=== PATIENT | female | born 1955 | race Caucasian/White ===

== ENCOUNTER 2018-07-03 16:21 | Inpatient (IN) ==
[2018-07-03 17:27] LABS: Baso % (Auto) 0.4 % (0.0-2.0); Eos # (Auto) 0.2 th/mm3 (0.0-0.4); Eos % (Auto) 1.6 % (0.0-4.0); Hematocrit 40.4 % (35.0-46.0); Hemoglobin 13.6 gm/dL (11.6-15.3); Lymph # (Auto) 1.6 th/mm3 (1.0-4.8); Lymph % (Auto) 12.1 % (9.0-44.0); Mean Corpuscular HGB Conc 33.7 % (32.0-36.0); Mean Corpuscular Hemoglobin 29.1 pg (27.0-34.0); Mean Corpuscular Volume 86.3 fL (80.0-100.0); Mean Platelet Volume 8.5 fL (7.0-11.0); Mono # (Auto) 1.1 th/mm3 (0.0-0.9); Mono % (Auto) 8.2 % (0.0-8.0); Neut # (Auto) 10.2 th/mm3 (1.8-7.7); Neut % (Auto) 77.7 % (16.0-70.0); Platelet Count 302 th/mm3 (150-450); Red Blood Count 4.68 mil/mm3 (4.00-5.30); Red Cell Distribution Width 15.2 % (11.6-17.2); White Blood Count 13.1 th/mm3 (4.0-11.0)
--- NOTE | 2018-07-03 17:44 | ED ---
HPI General Chief complaint: Extremity Problem,Nontraumatic Stated complaint: Cellulitis both legs Time Seen by Provider: 07/03/18 16:34 History of Present Illness HPI narrative: This is a 62-year-old female who is deaf, history of obesity, hyperlipidemia, depression and venous insufficiency. She was sent here by Dr. Veloz for treatment and admission of cellulitis failed outpatient therapy. She has had lower extremity edema for several months. Over the past month she developed redness and pain in the left pretibial region. She was placed on a 10 -day course of amoxicillin in May. She followed up with Dr. Veloz today with a worsening of her symptoms and she was sent here for further evaluation. Discussed this with Dr. Veloz. She has had no fevers or chills. Symptoms are moderate, aggravated by palpation. Related Data Home Medications Medication Instructions Recorded Confirmed Advil 07/03/18 Lasix 07/03/18 amoxicillin 07/03/18 07/03/18 naproxen 500 mg PO TID 07/03/18 07/03/18 pravastatin 20 mg PO DAILY 07/03/18 07/03/18 Allergies Allergy/AdvReac Type Severity Reaction Status Date / Time No Known Allergies Allergy Uncoded 12/08/12 10:07 Review of Systems ROS: all other systems reviewed are negative [facility] Medical History Medical History Hyperlipidemia (Acute) Obesity (Acute) PVD (peripheral vascular disease) (Acute) Rotator cuff dysfunction (Acute) Social History Social History Substance History: No History of Abuse Second Hand Smoke Exposure: No Smoking Status: Never smoker How Often Do You Have a Drink Containing Alcohol: Never Recent Travel in [facility] within the Last 8 Weeks: No Recent Out of Country Travel within the Last 8 Weeks: No Immunization History Tetanus Immunization: Unsure Exam Narrative Exam Narrative: GENERAL: This is an obese female who is in no acute distress SKIN: Warm and dry. Examination of the left pretibial region reveals a large area of erythema, skin maceration and drainage. HEAD: Atraumatic. Normocephalic. EYES: Pupils equal and round. No scleral icterus. No injection or drainage. ENT: No nasal bleeding or discharge. Mucous membranes pink and moist. NECK: Trachea midline. No JVD. CARDIOVASCULAR: Regular rate and rhythm. No murmur appreciated. RESPIRATORY: No accessory muscle use. Clear to auscultation. Breath sounds equal bilaterally. GASTROINTESTINAL: Abdomen soft, non-tender, nondistended. Hepatic and splenic margins not palpable. MUSCULOSKELETAL: No obvious deformities. Skin as noted above. Pitting edema noted to the lower extremities bilaterally. NEUROLOGICAL: Awake and alert. No obvious cranial nerve deficits. Motor grossly within normal limits. Normal speech. Course Initial Documented Vital Signs Temperature 98.3 F 07/03/18 16:39 Pulse Rate 106 H 07/03/18 16:39 Blood Pressure 192/88 H 07/03/18 16:39 Pulse Oximetry 96 07/03/18 16:39 Last Documented Vital Signs Temperature 98.3 F 07/03/18 16:39 Pulse Rate 100 H 07/03/18 19:00 Respiratory Rate 20 07/03/18 19:00 Blood Pressure 190/77 H 07/03/18 19:00 Pulse Oximetry 95 07/03/18 19:00 Medical Decision Making MDM Narrative Medical decision making narrative: IV established, lab work, blood cultures left lower extremity ultrasound obtained. Lab work, ultrasound results reviewed. CBC reveals a WBC count of 13.1. She meets sirs criteria. Ultrasound is negative for DVT however was limited secondary to cellulitis and pain per radiologist. The patient was given vancomycin and Zosyn. Nystatin cream was also applied to the wound. At this point in time the plan is to admit her for further treatment. Medical Screen Exam Complete: Yes Emergency Medical Condition: Yes Differential Diagnosis Differential Diagnosis: Cellulitis, candidal infection, abscess, venous insufficiency, lymphedema Lab Data Result diagrams: 07/03/18 16:45 07/03/18 16:45 Lab Results 07/03/18 07/03/18 07/03/18 Range/Units 16:45 16:45 16:45 WBC 13.1 H (4.0-11.0) th/mm3 RBC 4.68 (4.00-5.30) mil/mm3 Hgb 13.6 (11.6-15.3) gm/dL Hct 40.4 (35.0-46.0) % MCV 86.3 (80.0-100.0) fL MCH 29.1 (27.0-34.0) pg MCHC 33.7 (32.0-36.0) % RDW 15.2 (11.6-17.2) % Plt Count 302 (150-450) th/mm3 MPV 8.5 (7.0-11.0) fL Neut % (Auto) 77.7 H (16.0-70.0) % Lymph % (Auto) 12.1 (9.0-44.0) % [place] % (Auto) 8.2 H (0.0-8.0) % Eos % (Auto) 1.6 (0.0-4.0) % Baso % (Auto) 0.4 (0.0-2.0) % Neut # (Auto) 10.2 H (1.8-7.7) th/mm3 Lymph # (Auto) 1.6 (1.0-4.8) th/mm3 [place] # (Auto) 1.1 H (0.0-0.9) th/mm3 Eos # (Auto) 0.2 (0.0-0.4) th/mm3 Baso # (Auto) 0.0 (0.0-0.2) th/mm3 WBC Differential . Differential Comment Auto diff final Sodium 141 (136-145) meq/L Potassium 4.1 (3.5-5.1) meq/L Chloride 106 (98-107) meq/L Carbon Dioxide 31.3 (21.0-32.0) meq/L Anion Gap 4 L (5-15) meq/L BUN 17 (7-18) mg/dL Creatinine 0.69 (0.50-1.00) mg/dL Estimated GFR 86 L (>89) mL/min Random Glucose 105 (74-106) mg/dL Lactic Acid 1.1 (0.4-2.0) mmol/L Calcium 8.5 (8.5-10.1) mg/dL Magnesium 2.6 H (1.5-2.5) mg/dL Total Bilirubin 0.4 (0.2-1.0) mg/dL AST 25 (15-37) U/L ALT 29 (10-53) U/L Alkaline Phosphatase 167 H (45-117) U/L Total Protein 7.7 (6.4-8.2) g/dL Albumin 3.2 L (3.4-5.0) g/dL Imaging Data Radiologist's impression: Venous Doppler Study 07/03/18 16:52 CONCLUSION: 1. Negative for deep venous thrombosis, Limited exam from cellulitis and pain lower extremity. Discharge Plan Discharge Disposition Patient Disposition: ED Admit(ED Internal Use Only) Discharge Condition Condition: Stable Discharge Details Diagnosis: Cellulitis of left leg, Sepsis Physicians Team ED Provider: Reid Jackson ED Midlevel Provider: El Weems Primary Care Provider: UNKNOWN, Rxs /Orders / Referrals /Forms Prescriptions: No Action amoxicillin RF: 0 naproxen 500 mg PO TID RF: 0 Advil RF: 0 pravastatin 20 mg Tablet 20 mg PO DAILY RF: 0 Lasix RF: 0 Discharge Interventions Interventions: Vital Signs Last Done: 07/03/18 19:00 Status ED Status: With Doctor
[2018-07-03 17:48] LABS: Alanine Aminotransferase 29 U/L (10-53); Albumin 3.2 g/dL (3.4-5.0); Anion Gap 4 meq/L (5-15); Aspartate Aminotransferase 25 U/L (15-37); Blood Urea Nitrogen 17 mg/dL (7-18); Calcium 8.5 mg/dL (8.5-10.1); Carbon Dioxide 31.3 meq/L (21.0-32.0); Chloride 106 meq/L (98-107); Glomerular Filtration Rate 86 mL/min (>89); Glucose,Random 105 mg/dL (74-106); Magnesium 2.6 mg/dL (1.5-2.5); Potassium 4.1 meq/L (3.5-5.1); Sodium 141 meq/L (136-145)
[2018-07-03 17:50] LABS: Alkaline Phosphatase 167 U/L (45-117); Total Protein 7.7 g/dL (6.4-8.2)
--- NOTE | 2018-07-03 18:08 | US ---
EXAM DATE: 07/03/2018 6:05 PM EST AGE/SEX: 62 years / Female INDICATIONS: Cellulitis. CLINICAL DATA: This is the patient's initial encounter. Patient reports that signs and symptoms have been present for 1 month and indicates a pain score of 6/10. MEDICAL/SURGICAL HISTORY: Carcinoma, cervical. Morbid obesity. Hypertension. Hyperlipidemia. None. COMPARISON: No prior exams available for comparison. TECHNIQUE: Venous ultrasound of both lower extremities was performed from the inguinal ligament to t he proximal calf. Real-time, color Doppler and spectral tracing, compression and augmentation techni ques were used. FINDINGS: Normal compression of the deep venous system from the inguinal region to the proximal calf . No echogenic clot is seen. Normal response of the venous system to augmentation and respiration. CONCLUSION: 1. Negative for deep venous thrombosis, Limited exam from cellulitis and pain lower extremity. Electronically signed by: Freedom Mosquera MD Board Certified Radiologist 07/03/2018 6:07 PM EST
[2018-07-03] MEDS ORDERED: Vancomycin Inj 1,000 MG in Sodium Chlor 0.9% Inj 250 ML IV.SIG ONE (18:39)
[2018-07-03] MEDS ORDERED: Piperacil/Tazo 3.375 GM Premix 3.375 GM/50 ML PIGGYBACK IV.SIG ONE (18:39)
[2018-07-03] MEDS ORDERED: Bisacodyl 10 MG Supp RECTAL PRN (19:26)
[2018-07-03] MEDS ORDERED: Acetaminophen 325 MG Tablet PO PRN (19:26)
[2018-07-03] MEDS ORDERED: Vancomycin Consult Pharmacy OTHER PRN (19:30)
[2018-07-03] MEDS: hydroCHLOROthiazide 25 MG Tablet PO SCH (22:07)
[2018-07-03] MEDS: Enoxaparin Inj 40 MG/0.4 ML Syringe SQ SCH (22:07)
[2018-07-04] MEDS ORDERED: Melatonin 5 MG Tablet PO PRN (02:14)
[2018-07-04] MEDS: Piperacil/Tazo 3.375 GM Premix 3.375 GM/50 ML PIGGYBACK IV.SIG SCH ×4 (02:23→20:00)
--- NOTE | 2018-07-04 02:29 | P.HPIM ---
History of Present Illness Service: [facility] . Primary Care Physician: UNKNOWN . Chief Complaint: left leg pain History of Present Illness: Ms. Leiva is a 62 y/o female who has been deaf since and has a history of hyperlipidemia, obesity, peripheral vascular disease, hypertension, and diabetes mellitus who presented to the emergency room 07/03/2018 because 1 of the doctors who cares for her sent her to the hospital for evaluation of cellulitis in the left lower extremity with failed outpatient therapy. Patient is admitted to the hospitalist service for medical management. Patient is seen in her hospital room on 4 N. She was interviewed using [employer] sign language interpretation video system. 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 She reports severe left lower extremity pain that is intermittent and pulsatile in quality and keeps her awake at night. She reports not having slept well in several days due to pain. Inpatient Certification: I certify that the inpatient services were ordered in accordance with Medicare regulations governing the order. This includes certification that hospital inpatient services are reasonable and necessary and in the case of services not specified as inpatient-only under 42 CFR 419.22(n), that they are appropriately provided as inpatient services in accordance to with the 2-midnight benchmark under 43 CFR 412.3(e) Estimated Total Length of Stay (Days): 3 Plans for Post Hospital Care: Not yet determined Review of Systems All other systems reviewed negative except as stated in HPI PMFSH - History History Provided By: Patient - Medical History Medical History: Medical History (Last Updated 07/04/18 @ 02:22 by ALPHONSO Li) Hyperlipidemia Obesity PVD (peripheral vascular disease) Rotator cuff dysfunction Type 2 diabetes mellitus - Surgical History Surgical History: Surgical History (Last Updated 07/04/18 @ 02:22 by ALPHONSO Li) History of History of exploratory laparotomy History of total hysterectomy with bilateral salpingo-oophorectomy (BSO) - Family History Family History: Family History (Last Updated 07/04/18 @ 02:23 by ALPHONSO Li) Sister History of prediabetes - Social History I have reviewed the patient's Social History: Yes - Tobacco History Second Hand Smoke Exposure: No Smoking Status: Never smoker - Alcohol History How Often Do You Have a Drink Containing Alcohol: Never - Substance Use History Substance History: No History of Abuse - Travel History Recent Travel in the [place] Within the Last 8 Weeks: No Recent Travel Out of the Country Within the Last 8 Weeks: No - Immunization History Tetanus Immunization: >5 Years Hx Influenza Vaccine This Season: Yes Medications and Allergies Active Medications: Active Medications Acetaminophen (Tylenol) 650 mg PO Q4H PRN PRN Reason: Temp > 100.4 Hydrocodone Bitart/Acetaminophen ([place] 10/325) 1 tab PO Q4H PRN PRN Reason: SEVERE PAIN Last Admin: 07/04/18 02:03 Dose: 1 tab Hydrocodone Bitart/Acetaminophen ([place] 5/325) 1 tab PO Q4H PRN PRN Reason: mild to moderate pain Al Hydroxide/Mg Hydroxide (Milk Of Magnesia Liq) 30 ml PO Q12H PRN PRN Reason: Mild Constipation Bisacodyl (Dulcolax Supp) 10 mg RECTAL DAILY PRN PRN Reason: SEVERE CONSITIPATION Enoxaparin Sodium (Lovenox Inj) 40 mg SQ Q24H [facility] Last Admin: 07/03/18 22:07 Dose: 40 mg Hydrochlorothiazide (Hydrodiuril) 25 mg PO BID@0900,1800 [facility] Last Admin: 07/03/18 22:07 Dose: 25 mg Piperacillin/Tazobactam/Dextrose (Zosyn 3.375 Gm Premix) 3.375 gm in 50 mls @ 100 mls/hr IV.SIG Q6H TOÑO Vancomycin HCl 1,150 mg/ (Sodium Chloride) 261.5 mls @ 250 mls/hr IV.SIG Q12H TOÑO Lactulose (Lactulose Liq) 30 ml PO DAILY PRN PRN Reason: SEVERE CONSITIPATION Miscellaneous Information ([facility] [place] [place] [facility] Ordered Lab Info) 0 each OTHER ONCE ONE Stop: 07/05/18 07:46 Ondansetron HCl (Zofran Inj) 4 mg IV.PUSH Q6H PRN PRN Reason: NAUSEA OR VOMITING Pharmacy Profile Note (Vancomycin Consult Pharmacy) 1 each OTHER UNSCH PRN PRN Reason: Pharmacy to dose Pravastatin Sodium (Pravachol) 20 mg PO DAILY TOÑO Sennosides (Senokot) 17.2 mg PO Q12H PRN PRN Reason: Moderate Constipation Sodium Chloride (Ns Flush) 2 ml IV.FLUSH PRN PRN PRN Reason: FLUSH AFTER USING IV ACCESS Sodium Chloride (Ns Flush) 2 ml IV.FLUSH BID TOÑO Last Admin: 07/03/18 22:08 Dose: 2 ml Allergies Allergy/AdvReac Type Severity Reaction Status Date / Time No Known Allergies Allergy Verified 07/03/18 21:17 Home Medications Medication Instructions Recorded Confirmed Type Advil 07/03/18 History Lasix 07/03/18 History amoxicillin 07/03/18 07/03/18 History naproxen 500 mg PO TID 07/03/18 07/03/18 History pravastatin 20 mg PO DAILY 07/03/18 07/03/18 History Exam Vital signs: Vital Signs 07/03/18 16:39 07/03/18 16:45 07/03/18 17:00 Temperature 98.3 F Pulse Rate 106 H 98 H Respiratory Rate 20 Blood Pressure 192/88 H 180/86 H Pulse Oximetry 96 99 99 07/03/18 19:00 07/03/18 20:00 07/04/18 00:00 Temperature 97.7 F 98.4 F Pulse Rate 100 H 111 H 96 H Respiratory Rate 20 16 16 Blood Pressure 190/77 H 146/63 H 157/76 H Pulse Oximetry 95 96 97 Intake & Output 07/03/18 07/03/18 07/04/18 06:59 18:59 06:59 Intake Total 300 / 300 Balance 300 / 300 Weight 124.7 kg Intake: IV 300 / 300 Zosyn 3.375 GM Premix 3.375 gm 50 / 50 In 50 ml @ 100 mls/hr IV.SIG ONCE ONE Rx#:[id number] Vancomycin Inj 1,000 MG In NS 250 / 250 Inj 250 ML @ 250 mls/hr IV.SIG ONCE ONE Rx#:[id number] Other: Weight On Admission 124.7 kg Narrative: GENERAL: This is an obese older female patient, in no apparent distress. SKIN: left lower extremity with large wound to hilton and several small wounds on her left foot. There is some purulence noted around wound edges along with maceration. +2 pitting edema also present. HEAD: Atraumatic. Normocephalic. EYES: No scleral icterus. No injection or drainage. ENT: Nose without bleeding, purulent drainage. Hearing impaired/deaf. NECK: Trachea midline. No JVD. CARDIOVASCULAR: Regular rate and rhythm without murmurs, gallops, or rubs. RESPIRATORY: Clear to auscultation. Breath sounds equal bilaterally. No wheezes , rales, or rhonchi. GASTROINTESTINAL: Abdomen soft, non-tender, nondistended. No guarding. MUSCULOSKELETAL: Extremities without cyanosis. No calf tenderness. NEUROLOGICAL: Awake and alert with difficulty focusing. Motor and sensory grossly within normal limits. . Results - Labs CBC & Chem 7: 07/03/18 16:45 07/03/18 16:45 Labs: Short CBC 07/03/18 Range/Units 16:45 WBC 13.1 H (4.0-11.0) th/mm3 Hgb 13.6 (11.6-15.3) gm/dL Hct 40.4 (35.0-46.0) % Plt Count 302 (150-450) th/mm3 BMP 07/03/18 16:45 Sodium 141 Potassium 4.1 Chloride 106 Carbon Dioxide 31.3 BUN 17 Creatinine 0.69 Calcium 8.5 Liver Function 07/03/18 Range/Units 16:45 Total Bilirubin 0.4 (0.2-1.0) mg/dL AST 25 (15-37) U/L ALT 29 (10-53) U/L Alkaline Phosphatase 167 H (45-117) U/L Albumin 3.2 L (3.4-5.0) g/dL - Imaging Impressions Venous Doppler Study 07/03/18 16:52 CONCLUSION: 1. Negative for deep venous thrombosis, Limited exam from cellulitis and pain lower extremity. Caprini VTE Risk Assessment Caprini VTE Risk Assessment: Moderate/High Risk (score >= 2) Caprini Risk Assessment Model: Point Value = 1 Point Value = 2 Point Value = 3 Point Value = 5 Age 41-60 Minor surgery BMI > 25 kg/m2 Swollen legs Varicose veins or History of unexplained or recurrent spontaneous Oral contraceptives or hormone replacement Sepsis (< 1 month) Serious lung disease, including pneumonia (< 1 month) Abnormal pulmonary function Acute myocardial infarction Congestive heart failure (< 1 month) History of inflammatory bowel disease Medical patient at bed rest Age 61-74 Arthroscopic surgery Major open surgery (> 45 min) Laparoscopic surgery (> 45 min) Malignancy Confined to bed (> 72 hours) Immobilizing plaster cast Central venous access Age >= 75 History of VTE Family history of VTE Factor V Leiden Prothrombin [id number] Lupus anticoagulant Anticardiolipin antibodies Elevated serum homocysteine Heparin-induced thrombocytopenia Other congenital or acquired thrombophilia Stroke (< 1 month) Elective arthroplasty Hip, pelvis, or leg fracture Acute spinal cord injury (< 1 month) Prophylaxis Regimen: Total Risk Factor Score Risk Level Prophylaxis Regimen 0-1 Low Early ambulation 2 Moderate Order ONE of the following: *Sequential Compression Device (SCD) *Heparin 5000 units SQ BID 3-4 Higher Order ONE of the following medications: *Heparin 5000 units SQ TID *Enoxaparin/Lovenox 40 mg SQ daily (WT < 150 kg, CrCl > 30 mL/min) *Enoxaparin/Lovenox 30 mg SQ daily (WT < 150 kg, CrCl > 10-29 mL/min) *Enoxaparin/Lovenox 30 mg SQ BID (WT < 150 kg, CrCl > 30 mL/min) AND/OR *Sequential Compression Device (SCD) 5 or more Highest Order ONE of the following medications: *Heparin 5000 units SQ TID (Preferred with Epidurals) *Enoxaparin/Lovenox 40 mg SQ daily (WT < 150 kg, CrCl > 30 mL/min) *Enoxaparin/Lovenox 30 mg SQ daily (WT < 150 kg, CrCl > 10-29 mL/min) *Enoxaparin/Lovenox 30 mg SQ BID (WT < 150 kg, CrCl > 30 mL/min) AND *Sequential Compression Device (SCD) Assessment and Plan - Plan Ms. Leiva is a 62 y/o female who has been deaf since and has a history of hyperlipidemia, obesity, peripheral vascular disease, hypertension, and diabetes mellitus who presented to the emergency room 07/03/2018 because 1 of the doctors who cares for her sent her to the hospital for evaluation of cellulitis in the left lower extremity with failed outpatient therapy. Patient is admitted to the hospitalist service for medical management. Left lower extremity wounds with cellulitis - failed outpatient therapy -Antibiotics: Zosyn 3.375 g IV every 6 hours and IV vancomycin with vancomycin pharmacy consultation for assistance with therapeutic monitoring and dosage -[place] 5/325 and 10/325 as needed for pain per scale -Consult to wound care nurse -Left lower extremity Doppler ultrasound was negative for DVT -Await wound culture and blood culture results and adjust treatment as indicated Type 2 Diabetes Mellitus -patient is diet controlled at home - will continue -Accu-Cheks before meals and at bedtime -Hypoglycemia protocol -Monitor trends and blood glucose readings and adjust treatments as indicated Hyperlipidemia -resume Pravastatin DVT prophylaxis -Lovenox 40 mg subcu every 24 hours Discussed Condition With: Dr. Colindres, patient, and RN H&P: Quality - VTE Deep Vein Thrombosis/Pulmonary Embolism Present on Admission: No
[2018-07-04] MEDS ORDERED: Dextrose 50% in Water 50 ML Vial IV.PUSH PRN (02:42)
[2018-07-04 05:52] LABS: Baso # (Auto) 0.1 th/mm3 (0.0-0.2); Baso % (Auto) 0.6 % (0.0-2.0); Eos # (Auto) 0.1 th/mm3 (0.0-0.4); Eos % (Auto) 1.1 % (0.0-4.0); Hematocrit 39.6 % (35.0-46.0); Hemoglobin 13.1 gm/dL (11.6-15.3); Lymph # (Auto) 1.3 th/mm3 (1.0-4.8); Lymph % (Auto) 12.2 % (9.0-44.0); Mean Corpuscular HGB Conc 33.2 % (32.0-36.0); Mean Corpuscular Hemoglobin 28.3 pg (27.0-34.0); Mean Corpuscular Volume 85.4 fL (80.0-100.0); Mean Platelet Volume 9.1 fL (7.0-11.0); Mono % (Auto) 9.6 % (0.0-8.0); Neut # (Auto) 8.2 th/mm3 (1.8-7.7); Neut % (Auto) 76.5 % (16.0-70.0); Platelet Count 266 th/mm3 (150-450); Red Blood Count 4.63 mil/mm3 (4.00-5.30); Red Cell Distribution Width 14.8 % (11.6-17.2); White Blood Count 10.8 th/mm3 (4.0-11.0)
[2018-07-04] MEDS ORDERED: Heparin - SQ 10,000 UNITS/ML Vial SQ SCH (06:00)
[2018-07-04 06:35] LABS: Albumin 2.7 g/dL (3.4-5.0); Anion Gap 6 meq/L (5-15); Aspartate Aminotransferase 23 U/L (15-37); Blood Urea Nitrogen 12 mg/dL (7-18); Calcium 8.2 mg/dL (8.5-10.1); Carbon Dioxide 32.5 meq/L (21.0-32.0); Chloride 105 meq/L (98-107); Glomerular Filtration Rate Greater Than 89 mL/min (>89); Glucose,Random 117 mg/dL (74-106); Sodium 143 meq/L (136-145)
[2018-07-04 06:39] LABS: Alanine Aminotransferase 27 U/L (10-53); Alkaline Phosphatase 145 U/L (45-117); Total Protein 6.8 g/dL (6.4-8.2)
[2018-07-04] MEDS: hydroCHLOROthiazide 25 MG Tablet PO SCH ×2 (08:06→17:46)
[2018-07-04] MEDS: Vancomycin Inj 1,150 MG in Sodium Chlor 0.9% Inj 250 ML IV.SIG SCH ×2 (09:10→22:37)
--- NOTE | 2018-07-04 14:44 | P.PNWCN ---
Wound Care Nurse Consult Description: Received wound management consult for LLE wound Communicated with: KELLI Jack [place] and call placed to Doctor Moya for orders Recommendation: 1. Consult podiatry Please cleanse wound to L lower extremity gently with normal saline or wound cleanser and pat dry. Apply Maxorb extra AG over draining areas not covered by scab. Cover with ABD pads secured with rolled gauze and tape. Change dressing every other day or as needed if saturated or dislodged, until seen by podiatry for possible debridement. 2. Please wash L leg with hebiclense and and dry . Apply lotion to unopened skin with dressing changes. 3. Keep BLE elevated when patient is in a laying or sitting position on pillows. Wound/Pressure Injury - Wound Left Lower Leg Wound Assessment: Ongoing Wound Type: Pressure Injury Is This a Chronic Wound: No Requested from Provider a Wound Care Consult: Yes (Patient seen today by wound care inpatient) Length (cm): 13 Width (cm): 20 (~20cm) Depth (cm): 0.1 (~0.1cm) Wound Bed Appearance: ~ 60% of wound is covered by dry brown scab and ~40% open pink tissue that is moist. Scab is opening in some areas and is oozing serous drainage. Periwound is erythematous with dry scaly skin. Surrounding Tissue Appearance: Erythema Surrounding Tissue Temperature: Warm Drainage Description: Serous Drainage Amount: Scant Drainage Odor: No Odor Dressing Status: Changed Cleansing Solution: Saline Primary Dressing: MAxorb extra AG and Maxorb II Cover Dressing: Gauze Roll/Wrap Tape Type: Paper Wound Dressing Change Date: 07/04/18 Wound Margin Description: poorly defined, irregular and jagged. - Additional Information Patient seen on [place] for evaluation of LLE wound management. Patient is deaf , [employer] sign language interpretation system was used. Patient is noted with large L lower leg wound that mostly covered by dry brown scab. Wound is open revealing pink tissue on the L lateral leg and L posterior leg, with moderate serous drainage. Scab appears to be opening in several spots and serous drainage is oozing from openings.Wound does not have foul odor. Erythema with peeling scaly skin are noted to periwound that is warm to touch. Patient complains of pain with lifting of leg and wound cleaning. Applied Maxorb Extra AG to oozing areas on scab and on L lateral leg. Maxorb II was applied after Maxorb extra AG was no longer available. Secured dressings in place with ABD pads, rolled gauze and tape. Patient tolerated dressing change and wound assessment well. Wound appears to have Venous stasis etiology due to edema present in both legs with dry scaly skin, however L leg wound culture is positive for gram positive cocci in pairs and cluster and gram negative rods.Should have infectious disease consulted and podiatry consult for possible debridement.
--- NOTE | 2018-07-04 15:11 | P.PNIM ---
Subjective Interval history: Patient had vomited as I walked into the room. Other than the episode of vomiting the patient complains of left lower extremity pain. Physical Exam Vital signs: Vital Signs 07/03/18 16:39 07/03/18 16:45 07/03/18 17:00 Temperature 98.3 F Pulse Rate 106 H 98 H Respiratory Rate 20 Blood Pressure 192/88 H 180/86 H Pulse Oximetry 96 99 99 07/03/18 19:00 07/03/18 20:00 07/03/18 23:50 Temperature 97.7 F Pulse Rate 100 H 111 H 87 Respiratory Rate 20 16 Blood Pressure 190/77 H 146/63 H Pulse Oximetry 95 96 07/04/18 00:00 07/04/18 04:00 07/04/18 08:00 Temperature 98.4 F 98 F 97.2 F L Pulse Rate 96 H 85 72 Respiratory Rate 16 16 16 Blood Pressure 157/76 H 130/66 141/63 H Pulse Oximetry 97 95 96 07/04/18 12:00 Temperature 97.1 F L Pulse Rate 76 Respiratory Rate 16 Blood Pressure 147/70 H Pulse Oximetry 97 Intake & Output 07/03/18 07/04/18 07/04/18 18:59 06:59 18:59 Intake Total 350 / 350 311.5 / 311.5 Balance 350 / 350 311.5 / 311.5 Weight 122.3 kg Intake: IV 350 / 350 311.5 / 311.5 Zosyn 3.375 GM Premix 3.375 gm 100 / 100 50 / 50 In 50 ml @ 100 mls/hr IV.SIG Q6H [facility] Rx#:[id number] Vancomycin Inj 1,000 MG In NS 250 / 250 Inj 250 ML @ 250 mls/hr IV.SIG ONCE ONE Rx#:[id number] Vancomycin Inj 1,150 MG In NS 261.5 / 261.5 Inj 250 ML @ 250 mls/hr IV.SIG Q12H [facility] Rx#:[id number] Other: # Voids 1 Weight On Admission 124.7 kg Narrative: General patient with vomit over her shirt. HEENT extraocular movements are intact, clear oropharyngeal mucosa, no JVD Cardiovascular S1-S2 audible, RRR, no murmurs rubs or gallops Respiratory clear to auscultation bilaterally Abdomen soft, nontender, nondistended, normal bowel sounds Extremities large wound with cellulitis of the left lateral [place]. Dry scaly skin of bilateral feet. Neuro cranial nerves II through XII intact Results - Labs CBC & Chem 7: 07/04/18 03:51 07/04/18 03:55 Laboratory Results - last 24 hr 07/03/18 07/03/18 07/03/18 16:45 16:45 16:45 WBC 13.1 H RBC 4.68 Hgb 13.6 Hct 40.4 MCV 86.3 MCH 29.1 MCHC 33.7 RDW 15.2 Plt Count 302 MPV 8.5 Neut % (Auto) 77.7 H Lymph % (Auto) 12.1 [place] % (Auto) 8.2 H Eos % (Auto) 1.6 Baso % (Auto) 0.4 Neut # (Auto) 10.2 H Lymph # (Auto) 1.6 [place] # (Auto) 1.1 H Eos # (Auto) 0.2 Baso # (Auto) 0.0 WBC Differential . Differential Comment Auto diff final Sodium 141 Potassium 4.1 Chloride 106 Carbon Dioxide 31.3 Anion Gap 4 L BUN 17 Creatinine 0.69 Estimated GFR 86 L Random Glucose 105 Lactic Acid 1.1 Calcium 8.5 Magnesium 2.6 H Total Bilirubin 0.4 AST 25 ALT 29 Alkaline Phosphatase 167 H B-Natriuretic Peptide Total Protein 7.7 Albumin 3.2 L 07/03/18 07/04/18 07/04/18 19:43 03:51 03:55 WBC 10.8 RBC 4.63 Hgb 13.1 Hct 39.6 MCV 85.4 MCH 28.3 MCHC 33.2 RDW 14.8 Plt Count 266 MPV 9.1 Neut % (Auto) 76.5 H Lymph % (Auto) 12.2 [place] % (Auto) 9.6 H Eos % (Auto) 1.1 Baso % (Auto) 0.6 Neut # (Auto) 8.2 H Lymph # (Auto) 1.3 [place] # (Auto) 1.0 H Eos # (Auto) 0.1 Baso # (Auto) 0.1 WBC Differential . Differential Comment Auto diff final Sodium 143 Potassium 4.0 Chloride 105 Carbon Dioxide 32.5 H Anion Gap 6 BUN 12 Creatinine 0.61 Estimated GFR Greater than 89 Random Glucose 117 H Lactic Acid Calcium 8.2 L Magnesium Total Bilirubin 0.7 AST 23 ALT 27 Alkaline Phosphatase 145 H B-Natriuretic Peptide 40 Total Protein 6.8 D Albumin 2.7 L Microbiology 07/03/18 16:45 Abscess - Leg Gram Stain - Final 07/03/18 16:45 Abscess - Leg Wound Culture - Preliminary 07/03/18 16:45 Blood - Peripheral Aerobic Blood Culture - Preliminary No growth in 1 day 07/03/18 16:45 Blood - Peripheral Anaerobic Blood Culture - Preliminary No growth in 1 day 07/03/18 14:50 Blood - Peripheral Aerobic Blood Culture - Preliminary No growth in 1 day 07/03/18 14:50 Blood - Peripheral Anaerobic Blood Culture - Preliminary No growth in 1 day - Imaging Impressions Venous Doppler Study 07/03/18 16:52 CONCLUSION: 1. Negative for deep venous thrombosis, Limited exam from cellulitis and pain lower extremity. Assessment and Plan - Plan This patient is a 62-year-old female who is deaf. The patient has a diagnosis of dyslipidemia, diabetes mellitus type 2. The patient presented to the hospital with cellulitis of the left lower extremity. She was initially treated with outpatient antibiotics which she failed. She was admitted and subsequently started on antibiotics. 1. Sepsis secondary to left lower extremity cellulitis failed outpatient p.o. antibiotics. Patient presented with tachycardia, elevated WBC count. Physical examination shows left lower extremity cellulitis. Ultrasound of the left lower extremity is negative for DVT. Patient is currently on vancomycin and Zosyn. ID will be consulted to eval the patient. Podiatry consulted. Tylenol for pain control, will adjust her meds if needed. 2. Hypertension Patient started on lisinopril. We will continue to monitor blood pressure and adjust her meds as needed. 3. Diabetes mellitus type 2 Continue low-dose insulin sliding scale. Blood sugars currently acceptable. 4. Dyslipidemia Continue statin. Lovenox for DVT prophylaxis.
[2018-07-04] MEDS: Lisinopril 5 MG Tablet PO SCH (17:47)
[2018-07-04] MEDS: Sod Chloride 0.9% Inj 1,000 ML IV.CONT SCH (17:47)
[2018-07-04] MEDS: Enoxaparin Inj 40 MG/0.4 ML Syringe SQ SCH (22:48)
[2018-07-05] MEDS: Piperacil/Tazo 3.375 GM Premix 3.375 GM/50 ML PIGGYBACK IV.SIG SCH ×2 (01:13→11:50)
[2018-07-05] MEDS: Sod Chloride 0.9% Inj 1,000 ML IV.CONT SCH (05:42)
[2018-07-05] MEDS ORDERED: Pharmacy Ordered Lab Info OTHER ONE (07:45)
[2018-07-05 07:59] LABS: Anion Gap 3 meq/L (5-15); Blood Urea Nitrogen 8 mg/dL (7-18); Calcium 8.1 mg/dL (8.5-10.1); Carbon Dioxide 35.2 meq/L (21.0-32.0); Chloride 102 meq/L (98-107); Glomerular Filtration Rate Greater Than 89 mL/min (>89); Glucose,Random 88 mg/dL (74-106); Magnesium 2.2 mg/dL (1.5-2.5); Potassium 4.1 meq/L (3.5-5.1); Sodium 140 meq/L (136-145)
[2018-07-05 08:01] LABS: Vancomycin,Trough 14.5 mcg/mL (5.0-10.0)
--- NOTE | 2018-07-05 09:06 | P.CONID ---
History of Present Illness Service: Infectious disease Consult date: 07/05/18 Requesting Physician: Kelli Moya Reason for Consult: Evaluate patient with left lower extremity cellulitis Primary Care Provider: UNKNOWN Chief Complaint: left leg pain History of Present Illness: Patient seen and examined. Records reviewed. Patient is a 62-year-old female, has been deaf since , brought into the hospital for further evaluation of cellulitis of the left lower extremity. Patient apparently has had problem with swelling in both lower extremities. She has some sores on her left leg which according to the patient has been present for several weeks. I asked her if she was putting any ointment or any salve, and she stated no. She also keeps the area open. Patient apparently was given a course of antibiotics by her primary care physician. She continues to have problem and so she was told to go to the hospital for further evaluation and treatment. Patient has not had any mention of any fever chills or sweats. She has a small amount of pain on her left leg. Since admission her white count was initially elevated and is down to normal. Ultrasound did not show any DVT. There is a wound culture that is currently pending, Gram stain is showing gram-positive 7 gram-negative rods. Patient is currently on Vanco and Zosyn. Infectious disease consultation has been requested to assist with evaluation and treatment. Review of Systems Constitutional: Denies chills, Denies fever(s) Eyes: Denies discharge, Denies dry eyes Ears, Nose, Mouth, and Throat: Reports abnormal hearing, Denies headache(s), Denies nasal discharge, Denies pain with swallowing, Denies sore throat Cardiovascular: Reports leg sores, Reports leg swelling, Denies chest pain, Denies shortness of breath Respiratory: Denies chest congestion, Denies cough, Denies shortness of breath Gastrointestinal: Reports vomiting, Denies abdominal pain, Denies pain with swallowing Genitourinary: Denies difficulty urinating, Denies painful urination Musculoskeletal: Denies neck pain Skin/Breast: Reports sores, Reports wounds Neurologic: Reports abnormal hearing PMFSH - History History Provided By: Patient - Medical History Medical History: Medical History (Last Reviewed 07/05/18 @ 08:57 by Gracy Montiel MD) Hyperlipidemia Obesity PVD (peripheral vascular disease) Rotator cuff dysfunction Type 2 diabetes mellitus - Surgical History Surgical History: Surgical History (Last Reviewed 07/05/18 @ 08:57 by Gracy Montiel MD) History of History of exploratory laparotomy History of total hysterectomy with bilateral salpingo-oophorectomy (BSO) - Family History Family History: Family History (Last Reviewed 07/05/18 @ 08:57 by Gracy Montiel MD) Sister History of prediabetes - Tobacco History Second Hand Smoke Exposure: No Smoking Status: Never smoker - Alcohol History How Often Do You Have a Drink Containing Alcohol: Never - Substance Use History Substance History: No History of Abuse - Travel History Recent Travel in the [place] Within the Last 8 Weeks: No Recent Travel Out of the Country Within the Last 8 Weeks: No - Immunization History Tetanus Immunization: >5 Years Hx Influenza Vaccine This Season: Yes Medications and Allergies Active Medications: Active Medications Acetaminophen (Tylenol) 650 mg PO Q4H PRN PRN Reason: Temp > 100.4 Hydrocodone Bitart/Acetaminophen ([place] 10/325) 1 tab PO Q4H PRN PRN Reason: SEVERE PAIN Last Admin: 07/04/18 13:03 Dose: 1 tab Hydrocodone Bitart/Acetaminophen ([place] 5/325) 1 tab PO Q4H PRN PRN Reason: mild to moderate pain Al Hydroxide/Mg Hydroxide (Milk Of Magnesia Liq) 30 ml PO Q12H PRN PRN Reason: Mild Constipation Bisacodyl (Dulcolax Supp) 10 mg RECTAL DAILY PRN PRN Reason: SEVERE CONSITIPATION Dextrose (D50w Vial) 50 ml IV.PUSH UNSCH PRN PRN Reason: PER HYPOGLYCEMIA PROTOCOL Enoxaparin Sodium (Lovenox Inj) 40 mg SQ Q24H [facility] Last Admin: 07/04/18 22:48 Dose: 40 mg Glucagon (Glucagon Inj) 1 mg OTHER PRN PRN PRN Reason: for Hypoglycemia Protocol Hydrochlorothiazide (Hydrodiuril) 25 mg PO BID@0900,1800 [facility] Last Admin: 07/04/18 17:46 Dose: 25 mg Piperacillin/Tazobactam/Dextrose (Zosyn 3.375 Gm Premix) 3.375 gm in 50 mls @ 100 mls/hr IV.SIG Q6H [facility] Last Infusion: 07/05/18 01:43 Dose: Infused Vancomycin HCl 1,150 mg/ (Sodium Chloride) 261.5 mls @ 250 mls/hr IV.SIG Q12H [facility] Last Infusion: 07/04/18 23:40 Dose: Infused Sodium Chloride (Ns Inj) 1,000 mls @ 84 mls/hr IV.CONT .[id number] [facility] Last Admin: 07/05/18 05:42 Dose: 84 mls/hr Lactulose (Lactulose Liq) 30 ml PO DAILY PRN PRN Reason: SEVERE CONSITIPATION Lisinopril (Prinivil) 5 mg PO DAILY [facility] Last Admin: 07/04/18 17:47 Dose: 5 mg Melatonin (Melatonin) 5 mg PO HS PRN PRN Reason: INSOMNIA Ondansetron HCl (Zofran Inj) 4 mg IV.PUSH Q6H PRN PRN Reason: NAUSEA OR VOMITING Last Admin: 07/04/18 22:44 Dose: 4 mg Pharmacy Profile Note (Vancomycin Consult Pharmacy) 1 each OTHER UNSCH PRN PRN Reason: Pharmacy to dose Pravastatin Sodium (Pravachol) 20 mg PO DAILY [facility] Last Admin: 07/04/18 08:08 Dose: 20 mg Sennosides (Senokot) 17.2 mg PO Q12H PRN PRN Reason: Moderate Constipation Sodium Chloride (Ns Flush) 2 ml IV.FLUSH PRN PRN PRN Reason: FLUSH AFTER USING IV ACCESS Sodium Chloride (Ns Flush) 2 ml IV.FLUSH BID [facility] Last Admin: 07/04/18 22:48 Dose: 2 ml Allergies Allergy/AdvReac Type Severity Reaction Status Date / Time No Known Allergies Allergy Verified 07/03/18 21:17 Home Medications Medication Instructions Recorded Confirmed Type Advil 07/03/18 History Lasix 07/03/18 History amoxicillin 07/03/18 07/03/18 History naproxen 500 mg PO TID 07/03/18 07/03/18 History pravastatin 20 mg PO DAILY 07/03/18 07/03/18 History Exam Vital signs: Vital Signs 07/04/18 12:00 07/04/18 16:00 07/04/18 20:00 Temperature 97.1 F L 98.6 F 98.4 F Pulse Rate 83 81 78 Respiratory Rate 16 16 17 Blood Pressure 147/70 H 110/69 114/66 Pulse Oximetry 97 95 95 07/04/18 23:58 07/05/18 00:00 07/05/18 04:00 Temperature 98.3 F 98.1 F Pulse Rate 78 79 78 Respiratory Rate 16 16 Blood Pressure 118/62 112/64 Pulse Oximetry 95 95 07/05/18 04:05 Temperature Pulse Rate 83 Respiratory Rate Blood Pressure Pulse Oximetry Intake & Output 07/04/18 07/05/18 07/05/18 18:59 06:59 18:59 Intake Total 361.5 / 361.5 2081.5 / 2081.5 Balance 361.5 / 361.5 2081.5 / 2081.5 Weight 122.4 kg Intake: IV 361.5 / 361.5 1361.5 / 1361.5 NS Inj 1,000 ML @ 84 mls/hr IV. 1000 / 1000 CONT .[id number] [facility] Rx#:[id number] Zosyn 3.375 GM Premix 3.375 gm 100 / 100 100 / 100 In 50 ml @ 100 mls/hr IV.SIG Q6H [facility] Rx#:[id number] Vancomycin Inj 1,150 MG In NS 261.5 / 261.5 261.5 / 261.5 Inj 250 ML @ 250 mls/hr IV.SIG Q12H [facility] Rx#:[id number] Oral 720 / 720 Other: # Voids 1 3 Narrative: Physical examination GENERAL: Patient is an obese, well-developed female, awake and alert, not in respiratory distress. SKIN: Cool and dry. No generalized rash, no ecchymoses and no evidence of embolic lesions. HEAD: Atraumatic. Normocephalic. No temporal wasting, or tenderness. EYES: [place] conjunctiva. No petechia or hemorrhage. Pupils equal, round and reactive to light. Extraocular movements full and intact. No scleral icterus. No injection or drainage. EARS, NOSE AND THROAT: Nose without bleeding or purulent nasal discharge. No sinus tenderness. Mucous membranes pink and moist. No oral lesions noted. No exudate. No oral thrush. NECK: Trachea midline. Supple and not tender, no meningeal signs CARDIOVASCULAR: Regular rate and rhythm. No murmurs, rubs or gallops heard RESPIRATORY: Clear to auscultation. Breath sounds equal bilaterally. No rales , wheezing or rhonchi ABDOMEN: Obese, soft, has abdominal pannus, with indurated skin and edema noted , non-tender, nondistended. Bowel sounds present and normoactive. No guarding. No rebound. EXTREMITIES: No clubbing, cyanosis. Has tree bark ktexture of both feet. LLE larger compared to RLE. RLE - has some dry scabs. LLE - has a very large superficial wound, circumferential, with yellow exudate and some crusting, has surrounding erythema, no lymphangitis seen in L thigh, no foul odor. No calf tenderness. NEUROLOGICAL: Awake and alert. Cranial nerves grossly intact. Motor grossly within normal limits. PSYCHIATRIC: Normal affect, calm and cooperative. LINE: No evidence of infection Results - Labs CBC & Chem 7: 07/04/18 03:51 07/05/18 07:38 Labs: Laboratory Results - last 24 hr 07/04/18 07/04/18 07/05/18 17:48 20:05 07:38 Sodium 140 Potassium 4.1 Chloride 102 Carbon Dioxide 35.2 H Anion Gap 3 L BUN 8 Creatinine 0.65 Estimated GFR Greater than 89 POC Glucose 116 H 107 Random Glucose 88 Calcium 8.1 L Magnesium 2.2 Vancomycin Trough 14.5 H 07/05/18 08:09 Sodium Potassium Chloride Carbon Dioxide Anion Gap BUN Creatinine Estimated GFR POC Glucose 77 Random Glucose Calcium Magnesium Vancomycin Trough - Imaging Venous Doppler Study 07/03/18 16:52 CONCLUSION: 1. Negative for deep venous thrombosis, Limited exam from cellulitis and pain lower extremity. Assessment and Plan - Plan Impression Stasis ulcers with cellulitis BLE edema Recommendation Agree with wound care Consider podiatry evaluation Continue vanco Continue Zosyn, but increased dose for PSAE which is common problem in infected stasis ulcers Try to control edema Follow C/S Monitor progress I will follow along with you Thank you for this consultation D/W Dr Moya (HEPAS)
[2018-07-05 09:33] LABS: Baso # (Auto) 0.1 th/mm3 (0.0-0.2); Baso % (Auto) 0.6 % (0.0-2.0); Eos # (Auto) 0.1 th/mm3 (0.0-0.4); Eos % (Auto) 0.6 % (0.0-4.0); Hematocrit 36.9 % (35.0-46.0); Lymph # (Auto) 1.5 th/mm3 (1.0-4.8); Lymph % (Auto) 16.3 % (9.0-44.0); Mean Corpuscular HGB Conc 32.5 % (32.0-36.0); Mean Corpuscular Hemoglobin 28.5 pg (27.0-34.0); Mean Corpuscular Volume 87.9 fL (80.0-100.0); Mean Platelet Volume 8.7 fL (7.0-11.0); Mono # (Auto) 1.1 th/mm3 (0.0-0.9); Mono % (Auto) 12.1 % (0.0-8.0); Neut # (Auto) 6.4 th/mm3 (1.8-7.7); Neut % (Auto) 70.4 % (16.0-70.0); Platelet Count 261 th/mm3 (150-450); Red Blood Count 4.21 mil/mm3 (4.00-5.30); Red Cell Distribution Width 15.1 % (11.6-17.2)
[2018-07-05] MEDS: Vancomycin Inj 1,150 MG in Sodium Chlor 0.9% Inj 250 ML IV.SIG SCH ×2 (09:37→21:33)
[2018-07-05] MEDS: hydroCHLOROthiazide 25 MG Tablet PO SCH ×2 (09:38→17:50)
[2018-07-05] MEDS: Lisinopril 5 MG Tablet PO SCH (09:39)
[2018-07-05] MEDS: Piperacil/Tazo 4.5 GM Premix 4.5 GM/100 ML BAG IV.SIG SCH ×3 (11:26→23:13)
--- NOTE | 2018-07-05 13:06 | P.PNIM ---
Subjective Interval history: Patient in no acute distress this morning. No specific complaints from the patient, she is in bed sitting upright. Physical Exam Vital signs: Vital Signs 07/04/18 16:00 07/04/18 20:00 07/04/18 23:58 Temperature 98.6 F 98.4 F Pulse Rate 81 78 78 Respiratory Rate 16 17 Blood Pressure 110/69 114/66 Pulse Oximetry 95 95 07/05/18 00:00 07/05/18 04:00 07/05/18 04:05 Temperature 98.3 F 98.1 F Pulse Rate 79 78 83 Respiratory Rate 16 16 Blood Pressure 118/62 112/64 Pulse Oximetry 95 95 07/05/18 08:00 Temperature 98.6 F Pulse Rate 91 H Respiratory Rate 18 Blood Pressure 133/75 Pulse Oximetry 96 Intake & Output 07/04/18 07/05/18 07/05/18 18:59 06:59 18:59 Intake Total 361.5 / 361.5 2081.5 / 2081.5 361.5 / 361.5 Balance 361.5 / 361.5 2081.5 / 2081.5 361.5 / 361.5 Weight 122.4 kg Intake: IV 361.5 / 361.5 1361.5 / 1361.5 361.5 / 361.5 NS Inj 1,000 ML @ 84 mls/hr IV. 1000 / 1000 CONT .[id number] [facility] Rx#:[id number] Zosyn 3.375 GM Premix 3.375 gm 100 / 100 100 / 100 In 50 ml @ 100 mls/hr IV.SIG Q6H [facility] Rx#:[id number] Zosyn 4.5 GM Premix 4.5 gm In 100 / 100 100 ml @ 200 mls/hr IV.SIG Q6H [facility] Rx#:[id number] Vancomycin Inj 1,150 MG In NS 261.5 / 261.5 261.5 / 261.5 261.5 / 261.5 Inj 250 ML @ 250 mls/hr IV.SIG Q12H [facility] Rx#:[id number] Oral 720 / 720 Other: # Voids 1 3 Narrative: General patient in no acute distress this morning. HEENT extraocular movements are intact, clear oropharyngeal mucosa, no JVD Cardiovascular S1-S2 audible, RRR, no murmurs rubs or gallops Respiratory clear to auscultation bilaterally Abdomen soft, nontender, nondistended, normal bowel sounds Extremities large wound with cellulitis of the left lateral [place]. Dry scaly skin of bilateral feet. Neuro cranial nerves II through XII intact Results - Labs CBC & Chem 7: 07/05/18 07:34 07/05/18 07:38 Laboratory Results - last 24 hr 07/04/18 07/04/18 07/05/18 17:48 20:05 07:34 WBC 9.0 RBC 4.21 Hgb 12.0 Hct 36.9 MCV 87.9 MCH 28.5 MCHC 32.5 RDW 15.1 Plt Count 261 MPV 8.7 Neut % (Auto) 70.4 H Lymph % (Auto) 16.3 [place] % (Auto) 12.1 H Eos % (Auto) 0.6 Baso % (Auto) 0.6 Neut # (Auto) 6.4 Lymph # (Auto) 1.5 [place] # (Auto) 1.1 H Eos # (Auto) 0.1 Baso # (Auto) 0.1 WBC Differential . Differential Comment Auto diff final Sodium Potassium Chloride Carbon Dioxide Anion Gap BUN Creatinine Estimated GFR POC Glucose 116 H 107 Random Glucose Calcium Magnesium Vancomycin Trough 07/05/18 07/05/18 07/05/18 07:38 08:09 12:05 WBC RBC Hgb Hct MCV MCH MCHC RDW Plt Count MPV Neut % (Auto) Lymph % (Auto) [place] % (Auto) Eos % (Auto) Baso % (Auto) Neut # (Auto) Lymph # (Auto) [place] # (Auto) Eos # (Auto) Baso # (Auto) WBC Differential Differential Comment Sodium 140 Potassium 4.1 Chloride 102 Carbon Dioxide 35.2 H Anion Gap 3 L BUN 8 Creatinine 0.65 Estimated GFR Greater than 89 POC Glucose 77 113 H Random Glucose 88 Calcium 8.1 L Magnesium 2.2 Vancomycin Trough 14.5 H Microbiology 07/03/18 16:45 Blood - Peripheral Aerobic Blood Culture - Preliminary No growth in 2 days 07/03/18 16:45 Blood - Peripheral Anaerobic Blood Culture - Preliminary No growth in 2 days 07/03/18 14:50 Blood - Peripheral Aerobic Blood Culture - Preliminary No growth in 2 days 07/03/18 14:50 Blood - Peripheral Anaerobic Blood Culture - Preliminary No growth in 2 days 07/03/18 16:45 Abscess - Leg Gram Stain - Final 07/03/18 16:45 Abscess - Leg Wound Culture - Preliminary Pseudomonas species Staphylococcus aureus Assessment and Plan - Plan This patient is a 62-year-old female who is deaf. The patient has a diagnosis of dyslipidemia, diabetes mellitus type 2. The patient presented to the hospital with cellulitis of the left lower extremity. She was initially treated with outpatient antibiotics which she failed. She was admitted and subsequently started on antibiotics. 1. Sepsis secondary to left lower extremity cellulitis failed outpatient p.o. antibiotics. Patient presented with tachycardia, elevated WBC count. WBC count normalized. Physical examination shows left lower extremity cellulitis. Ultrasound of the left lower extremity is negative for DVT. Patient is currently on vancomycin and Zosyn, Zosyn dose increased as per infectious disease recommendations. I appreciate their input. Blood cultures are negative. Podiatry consulted. Will follow up with the recommendations. Tylenol for pain control, will adjust her meds if needed. 2. Hypertension Patient started on lisinopril. We will continue to monitor blood pressure and adjust her meds as needed. Blood pressure better controlled today. 3. Diabetes mellitus type 2 Continue low-dose insulin sliding scale. Blood sugars currently acceptable. 4. Dyslipidemia Continue statin. Lovenox for DVT prophylaxis.
--- NOTE | 2018-07-05 17:42 | MB ---
cc: Valentine Martines DPM DATE: 07/05/2018 REASON FOR CONSULTATION: Left lower extremity cellulitis. HISTORY OF PRESENT ILLNESS: The patient is a 62-year-old female who has been deaf since . She has a history of PVD, diabetes, hyperlipidemia. PAST MEDICAL HISTORY: Per HPI. SURGICAL HISTORY: C section, exploratory laparoscopy, total hysterectomy. SOCIAL HISTORY: Never smoked. Denies alcohol or illicit drugs. MEDICATIONS: Per chart. PHYSICAL EXAMINATION: Left lower extremity with circumferential left mid leg wound. There is some mild yellow exudate, mild serous drainage, partial thickness. There is no exposed tendon. There is no tenderness and there is no streaking. DP and PT intact. ASSESSMENT: 1. Diabetes mellitus with neuropathy. 2. Left leg cellulitis. 3. Likely venous insufficiency. RECOMMENDATIONS: Continue with local wound care. There is no need for surgical intervention by podiatry. The patient can follow up with podiatry as an outpatient. Thank you for the kind consult. I am signing off at this point in time. Valentine Martines DPM SR/ct , 04:26 PM , 04:32 PM
[2018-07-05] MEDS: Enoxaparin Inj 40 MG/0.4 ML Syringe SQ SCH (21:38)
[2018-07-06] MEDS: Piperacil/Tazo 4.5 GM Premix 4.5 GM/100 ML BAG IV.SIG SCH ×2 (03:47→10:47)
[2018-07-06] MEDS: Vancomycin Inj 1,150 MG in Sodium Chlor 0.9% Inj 250 ML IV.SIG SCH (08:24)
[2018-07-06] MEDS: Lisinopril 5 MG Tablet PO SCH (08:28)
[2018-07-06] MEDS: hydroCHLOROthiazide 25 MG Tablet PO SCH (08:29)
--- NOTE | 2018-07-06 10:53 | P.PNIM ---
Subjective Interval history: No significant complaints of pain. Patient laying down in bed, does not appear to be in any acute distress. Physical Exam Vital signs: Vital Signs 07/05/18 12:00 07/05/18 16:00 07/05/18 20:00 Temperature 97.9 F 98.9 F 98.4 F Pulse Rate 88 87 77 Respiratory Rate 18 18 17 Blood Pressure 94/51 L 96/47 L 95/52 L Pulse Oximetry 94 L 94 L 94 L 07/06/18 00:00 07/06/18 04:00 07/06/18 08:00 Temperature 97.9 F 98 F 97.9 F Pulse Rate 94 H 98 H 104 H Respiratory Rate 20 20 18 Blood Pressure 124/87 105/54 L 132/59 L Pulse Oximetry 96 98 100 Intake & Output 07/05/18 07/06/18 07/06/18 18:59 06:59 18:59 Intake Total 1541.5 / 1541.5 465 / 465 Balance 1541.5 / 1541.5 465 / 465 Weight 122.7 kg Intake: IV 1061.5 / 1061.5 465 / 465 NS Inj 1,000 ML @ 84 mls/hr IV. 600 / 600 CONT .[id number] TOÑO Rx#:[id number] Zosyn 4.5 GM Premix 4.5 gm In 200 / 200 200 / 200 100 ml @ 200 mls/hr IV.SIG Q6H TOÑO Rx#:[id number] Vancomycin Inj 1,150 MG In NS 261.5 / 261.5 265 / 265 Inj 250 ML @ 250 mls/hr IV.SIG Q12H TOÑO Rx#:[id number] Oral 480 / 480 0 / 0 Other: # Voids 3 3 # Bowel Movements 1 0 Narrative: General patient in no acute distress this morning. HEENT extraocular movements are intact, clear oropharyngeal mucosa, no JVD Cardiovascular S1-S2 audible, RRR, no murmurs rubs or gallops Respiratory clear to auscultation bilaterally Abdomen soft, nontender, nondistended, normal bowel sounds Extremities large wound with cellulitis of the left lateral [place]. Dry scaly skin of bilateral feet. Neuro cranial nerves II through XII intact Results - Labs CBC & Chem 7: 07/05/18 07:34 07/05/18 07:38 Laboratory Results - last 24 hr 07/05/18 07/05/18 07/05/18 12:05 17:29 20:03 POC Glucose 113 H 107 241 H 07/05/18 07/06/18 23:02 07:19 POC Glucose 149 H 113 H Microbiology 07/03/18 16:45 Abscess - Leg Gram Stain - Final 07/03/18 16:45 Abscess - Leg Wound Culture - Final Pseudomonas aeruginosa Staphylococcus aureus 07/03/18 16:45 Blood - Peripheral Aerobic Blood Culture - Preliminary No growth in 2 days 07/03/18 16:45 Blood - Peripheral Anaerobic Blood Culture - Preliminary No growth in 2 days 07/03/18 14:50 Blood - Peripheral Aerobic Blood Culture - Preliminary No growth in 2 days 07/03/18 14:50 Blood - Peripheral Anaerobic Blood Culture - Preliminary No growth in 2 days Assessment and Plan - Plan This patient is a 62-year-old female who is deaf. The patient has a diagnosis of dyslipidemia, diabetes mellitus type 2. The patient presented to the hospital with cellulitis of the left lower extremity. She was initially treated with outpatient antibiotics which she failed. She was admitted and subsequently started on antibiotics. 1. Sepsis secondary to left lower extremity cellulitis failed outpatient p.o. antibiotics. Patient presented with tachycardia, elevated WBC count. WBC count normalized. Physical examination shows left lower extremity cellulitis. Podiatry evaluated the patient and does not recommend any surgical intervention at this point. ID evaluated the patient, will continue IV antibiotics. I will follow up with ID regarding duration of antibiotics for this patient. Likely will be discharged in the next few days. Patient will need IV antibiotics for today. Ultrasound of the left lower extremity is negative for DVT. Tylenol for pain control, will adjust her meds if needed. 2. Hypertension Patient started on lisinopril. We will continue to monitor blood pressure and adjust her meds as needed. Blood pressure under control. 3. Diabetes mellitus type 2 Continue low-dose insulin sliding scale. Blood sugars currently acceptable. 4. Dyslipidemia Continue statin. Lovenox for DVT prophylaxis.
--- NOTE | 2018-07-06 13:30 | P.PNID ---
Subjective Remarks: Patient is a 62-year-old female, has been deaf since , brought into the hospital for further evaluation of cellulitis of the left lower extremity. Patient apparently has had problem with swelling in both lower extremities. She has some sores on her left leg which according to the patient has been present for several weeks. I asked her if she was putting any ointment or any salve, and she stated no. She also keeps the area open. Patient apparently was given a course of antibiotics by her primary care physician. She continues to have problem and so she was told to go to the hospital for further evaluation and treatment. Patient has not had any mention of any fever chills or sweats. She has a small amount of pain on her left leg. Since admission her white count was initially elevated and is down to normal. Ultrasound did not show any DVT. There is a wound culture that is currently pending, Gram stain is showing gram-positive 7 gram-negative rods. Patient is currently on Vanco and Zosyn. Infectious disease consultation has been requested to assist with evaluation and treatment. Notes reviewed [facility] Podiatry notes reviewed Wound C/S MSSA and PSAE WBC normal Antibiotics: vancomycin Zosyn Lines: PIV Past Medical History: Hyperlipidemia Obesity PVD (peripheral vascular disease) Rotator cuff dysfunction Type 2 diabetes mellitus History of History of exploratory laparotomy History of total hysterectomy with bilateral salpingo-oophorectomy (BSO) Allergies/Adverse Reactions: Allergies No Known Allergies Allergy (Verified 07/03/18 21:17) Objective Vital Signs 07/05/18 16:00 07/05/18 20:00 07/06/18 00:00 Temperature 98.9 F 98.4 F 97.9 F Pulse Rate 87 77 94 H Respiratory Rate 18 17 20 Blood Pressure 96/47 L 95/52 L 124/87 Pulse Oximetry 94 L 94 L 96 07/06/18 04:00 07/06/18 08:00 07/06/18 12:00 Temperature 98 F 97.9 F 98.0 F Pulse Rate 98 H 104 H 59 L Respiratory Rate 20 18 18 Blood Pressure 105/54 L 132/59 L 91/47 L Pulse Oximetry 98 100 94 L Intake & Output 07/05/18 07/06/18 07/06/18 18:59 06:59 18:59 Intake Total 1541.5 / 1541.5 465 / 465 361.5 / 361.5 Balance 1541.5 / 1541.5 465 / 465 361.5 / 361.5 Weight 122.7 kg Intake: IV 1061.5 / 1061.5 465 / 465 361.5 / 361.5 NS Inj 1,000 ML @ 84 mls/hr IV. 600 / 600 CONT .[id number] TOÑO Rx#:[id number] Zosyn 4.5 GM Premix 4.5 gm In 200 / 200 200 / 200 100 / 100 100 ml @ 200 mls/hr IV.SIG Q6H TOÑO Rx#:[id number] Vancomycin Inj 1,150 MG In NS 261.5 / 261.5 265 / 265 261.5 / 261.5 Inj 250 ML @ 250 mls/hr IV.SIG Q12H TOÑO Rx#:[id number] Oral 480 / 480 0 / 0 Other: # Voids 3 3 # Bowel Movements 1 0 07/03/18 16:45 Blood - Peripheral Aerobic Blood Culture - Preliminary No growth in 3 days 07/03/18 16:45 Blood - Peripheral Anaerobic Blood Culture - Preliminary No growth in 3 days 07/03/18 14:50 Blood - Peripheral Aerobic Blood Culture - Preliminary No growth in 3 days 07/03/18 14:50 Blood - Peripheral Anaerobic Blood Culture - Preliminary No growth in 3 days 07/03/18 16:45 Abscess - Leg Gram Stain - Final 07/03/18 16:45 Abscess - Leg Wound Culture - Final Pseudomonas aeruginosa Staphylococcus aureus Lab - Hematology Results 07/05/18 07:34 WBC 9.0 RBC 4.21 Hgb 12.0 Hct 36.9 MCV 87.9 MCH 28.5 MCHC 32.5 RDW 15.1 Plt Count 261 MPV 8.7 Neut % (Auto) 70.4 H Lymph % (Auto) 16.3 [place] % (Auto) 12.1 H Eos % (Auto) 0.6 Baso % (Auto) 0.6 Neut # (Auto) 6.4 Lymph # (Auto) 1.5 [place] # (Auto) 1.1 H Eos # (Auto) 0.1 Baso # (Auto) 0.1 WBC Differential . Differential Comment Auto diff final Lab - Chemistry Results 07/04/18 07/04/18 07/05/18 17:48 20:05 07:38 Sodium 140 Potassium 4.1 Chloride 102 Carbon Dioxide 35.2 H Anion Gap 3 L BUN 8 Creatinine 0.65 Estimated GFR Greater than 89 POC Glucose 116 H 107 Random Glucose 88 Calcium 8.1 L Magnesium 2.2 07/05/18 07/05/18 07/05/18 08:09 12:05 17:29 Sodium Potassium Chloride Carbon Dioxide Anion Gap BUN Creatinine Estimated GFR POC Glucose 77 113 H 107 Random Glucose Calcium Magnesium 07/05/18 07/05/18 07/06/18 20:03 23:02 07:19 Sodium Potassium Chloride Carbon Dioxide Anion Gap BUN Creatinine Estimated GFR POC Glucose 241 H 149 H 113 H Random Glucose Calcium Magnesium 07/06/18 12:07 Sodium Potassium Chloride Carbon Dioxide Anion Gap BUN Creatinine Estimated GFR POC Glucose 120 H Random Glucose Calcium Magnesium Imaging: ITS Impressions Venous Doppler Study 07/03/18 16:52 CONCLUSION: 1. Negative for deep venous thrombosis, Limited exam from cellulitis and pain lower extremity. Physical Exam: GENERAL: awake and alert, not in respiratory distress. SKIN: Cool and dry. No generalized rash HEAD: Atraumatic. Normocephalic. No temporal wasting, or tenderness. EYES: [place] conjunctiva. No petechia or hemorrhage. No scleral icterus. No injection or drainage. EARS, NOSE AND THROAT: Mucous membranes pink and moist. No oral lesions noted. No exudate. No oral thrush. NECK: Trachea midline. Supple and not tender, no meningeal signs CARDIOVASCULAR: Regular rate and rhythm. No murmurs, rubs or gallops heard RESPIRATORY: Clear to auscultation. Breath sounds equal bilaterally. No rales , wheezing or rhonchi ABDOMEN: Obese, soft, has abdominal pannus, with indurated skin and edema noted , non-tender, nondistended. Bowel sounds present and normoactive. No guarding. No rebound. EXTREMITIES: No clubbing, cyanosis. Has tree bark ktexture of both feet. LLE larger compared to RLE. RLE - has some dry scabs. LLE - has a very large superficial wound, circumferential, with yellow exudate and some crusting, has surrounding erythema, no lymphangitis seen in L thigh, no foul odor. No calf tenderness. NEUROLOGICAL: Awake and alert. Cranial nerves grossly intact. Motor grossly within normal limits. PSYCHIATRIC: Normal affect, calm and cooperative. LINE: No evidence of infection Assessment and Plan - Plan Impression Stasis ulcers with cellulitis BLE edema Recommendation Agree with wound care Change to Cefepime - will cover PSAE and Cefepime Try to control edema Monitor progress
[2018-07-06 16:32] LABS: ABG PCO2 79 mmHg (38-42); ABG PO2 179 mmHg (61-120)
[2018-07-06 16:56] LABS: Baso % (Auto) 0.4 % (0.0-2.0); Eos # (Auto) 0.1 th/mm3 (0.0-0.4); Eos % (Auto) 0.9 % (0.0-4.0); Hemoglobin 11.8 gm/dL (11.6-15.3); Lymph # (Auto) 1.5 th/mm3 (1.0-4.8); Lymph % (Auto) 14.4 % (9.0-44.0); Mean Corpuscular HGB Conc 32.9 % (32.0-36.0); Mean Corpuscular Hemoglobin 28.4 pg (27.0-34.0); Mean Corpuscular Volume 86.4 fL (80.0-100.0); Mono # (Auto) 1.4 th/mm3 (0.0-0.9); Mono % (Auto) 13.6 % (0.0-8.0); Neut # (Auto) 7.2 th/mm3 (1.8-7.7); Neut % (Auto) 70.7 % (16.0-70.0); Platelet Count 273 th/mm3 (150-450); Red Blood Count 4.16 mil/mm3 (4.00-5.30); Red Cell Distribution Width 14.2 % (11.6-17.2); White Blood Count 10.2 th/mm3 (4.0-11.0)
[2018-07-06 17:11] LABS: Anion Gap 0 meq/L (5-15); Blood Urea Nitrogen 11 mg/dL (7-18); Calcium 8.2 mg/dL (8.5-10.1); Carbon Dioxide 42.2 meq/L (21.0-32.0); Chloride 96 meq/L (98-107); Glomerular Filtration Rate 70 mL/min (>89); Glucose,Random 155 mg/dL (74-106); Potassium 4.1 meq/L (3.5-5.1); Sodium 138 meq/L (136-145)
--- NOTE | 2018-07-06 17:44 | P.DCO ---
- Physical Therapy Order: Evaluate and treat - Home Health Nursing Order: Medical education, Wound care and dressing changes - Case Management Consult Case Management Consult-Home Health: Yes - Certification I have seen patient Johnna Leiva on 07/06/18. My clinical findings support the need for the requested home health care services because: Deconditioned with increased weakness, High risk of falls I certify that my clinical findings support that this patient is homebound because: Unsafe to leave home unassisted
[2018-07-06] MEDS: Enoxaparin Inj 40 MG/0.4 ML Syringe SQ SCH (21:13)
[2018-07-07] MEDS ORDERED: Pharmacy Ordered Lab Info OTHER ONE (07:45)
[2018-07-07 09:48] LABS: Glomerular Filtration Rate Greater Than 89 mL/min (>89)
--- NOTE | 2018-07-07 11:01 | P.PNIM ---
Subjective Interval history: Patient sitting upright in bed. Does not appear to be in any acute distress. Physical Exam Vital signs: Vital Signs 07/06/18 12:00 07/06/18 16:00 07/06/18 19:40 Temperature 98.0 F 97.8 F Pulse Rate 77 101 H Respiratory Rate 18 18 Blood Pressure 91/47 L 122/58 L Pulse Oximetry 94 L 94 L 56 L 07/06/18 19:45 07/06/18 19:50 07/06/18 20:00 Temperature 97.8 F Pulse Rate 101 H Respiratory Rate 20 Blood Pressure 136/65 Pulse Oximetry 94 L 94 L 93 L 07/06/18 20:20 07/06/18 20:52 07/07/18 00:00 Temperature 99.6 F Pulse Rate 106 H Respiratory Rate 20 Blood Pressure 150/69 H Pulse Oximetry 92 L 94 L 96 07/07/18 04:00 07/07/18 08:00 07/07/18 10:28 Temperature 98.8 F 99.2 F Pulse Rate 97 H 90 Respiratory Rate 20 16 Blood Pressure 157/71 H 115/58 L Pulse Oximetry 94 L 93 L 94 L Intake & Output 07/06/18 07/07/18 07/07/18 18:59 06:59 18:59 Intake Total 821.5 / 821.5 125 / 125 Output Total 250 / 250 Balance 821.5 / 821.5 -125 / -125 Intake: IV 461.5 / 461.5 100 / 100 Maxipime Inj 2,000 MG In NS Inj 100 / 100 100 / 100 100 ML @ 200 mls/hr IV.SIG Q12H TOÑO Rx#:[id number] Zosyn 4.5 GM Premix 4.5 gm In 100 / 100 100 ml @ 200 mls/hr IV.SIG Q6H TOÑO Rx#:[id number] Vancomycin Inj 1,150 MG In NS 261.5 / 261.5 Inj 250 ML @ 250 mls/hr IV.SIG Q12H TOÑO Rx#:[id number] Oral 360 / 360 25 / 25 Output: Urine 250 / 250 Other: # Voids 3 1 # Bowel Movements 0 Narrative: General patient in no acute distress this morning. HEENT extraocular movements are intact, clear oropharyngeal mucosa, no JVD Cardiovascular S1-S2 audible, RRR, no murmurs rubs or gallops Respiratory clear to auscultation bilaterally Abdomen soft, nontender, nondistended, normal bowel sounds Extremities large wound with cellulitis of the left lateral [place]. Dry scaly skin of bilateral feet. Neuro cranial nerves II through XII intact Results - Labs CBC & Chem 7: 07/06/18 16:35 07/07/18 06:28 Laboratory Results - last 24 hr 07/06/18 07/06/18 07/06/18 12:07 15:06 16:02 WBC RBC Hgb Hct MCV MCH MCHC RDW Plt Count MPV Neut % (Auto) Lymph % (Auto) [place] % (Auto) Eos % (Auto) Baso % (Auto) Neut # (Auto) Lymph # (Auto) [place] # (Auto) Eos # (Auto) Baso # (Auto) WBC Differential Differential Comment PT INR Puncture Site Patient Temperature O2 Saturation ABG pH ABG pCO2 ABG pO2 ABG HCO3 ABG O2 Content ABG Base Excess ABG Methemoglobin Mayur Test Hemoglobin Carboxyhemoglobin O2 Delivery Device Liter Flow Critical Value Sodium Potassium Chloride Carbon Dioxide Anion Gap BUN Creatinine Estimated GFR POC Glucose 120 H 113 H 148 H Random Glucose Calcium Troponin I 07/06/18 07/06/18 07/06/18 16:08 16:35 16:35 WBC 10.2 RBC 4.16 Hgb 11.8 Hct 36.0 MCV 86.4 MCH 28.4 MCHC 32.9 RDW 14.2 Plt Count 273 MPV 8.0 Neut % (Auto) 70.7 H Lymph % (Auto) 14.4 [place] % (Auto) 13.6 H Eos % (Auto) 0.9 Baso % (Auto) 0.4 Neut # (Auto) 7.2 Lymph # (Auto) 1.5 [place] # (Auto) 1.4 H Eos # (Auto) 0.1 Baso # (Auto) 0.0 WBC Differential . Differential Comment Auto diff final PT 10.0 INR 1.0 Puncture Site Left radial Patient Temperature 98.6 O2 Saturation 98 ABG pH 7.33 L ABG pCO2 79 H* ABG pO2 179 H ABG HCO3 40 H ABG O2 Content 16.8 ABG Base Excess 14.0 H ABG Methemoglobin 0.5 [place] Test Present Hemoglobin 12.0 Carboxyhemoglobin 1.5 O2 Delivery Device Nasal cannula Liter Flow 6.00 Critical Value Yes Sodium Potassium Chloride Carbon Dioxide Anion Gap BUN Creatinine Estimated GFR POC Glucose Random Glucose Calcium Troponin I 07/06/18 07/06/18 07/06/18 16:35 17:14 20:10 WBC RBC Hgb Hct MCV MCH MCHC RDW Plt Count MPV Neut % (Auto) Lymph % (Auto) [place] % (Auto) Eos % (Auto) Baso % (Auto) Neut # (Auto) Lymph # (Auto) [place] # (Auto) Eos # (Auto) Baso # (Auto) WBC Differential Differential Comment PT INR Puncture Site Patient Temperature O2 Saturation ABG pH ABG pCO2 ABG pO2 ABG HCO3 ABG O2 Content ABG Base Excess ABG Methemoglobin Mayur Test Hemoglobin Carboxyhemoglobin O2 Delivery Device Liter Flow Critical Value Sodium 138 Potassium 4.1 Chloride 96 L Carbon Dioxide 42.2 H Anion Gap 0 L BUN 11 Creatinine 0.83 Estimated GFR 70 L POC Glucose 147 H 167 H Random Glucose 155 H Calcium 8.2 L Troponin I Less than 0.02 L 07/07/18 07/07/18 06:28 08:17 WBC RBC Hgb Hct MCV MCH MCHC RDW Plt Count MPV Neut % (Auto) Lymph % (Auto) [place] % (Auto) Eos % (Auto) Baso % (Auto) Neut # (Auto) Lymph # (Auto) [place] # (Auto) Eos # (Auto) Baso # (Auto) WBC Differential Differential Comment PT INR Puncture Site Patient Temperature O2 Saturation ABG pH ABG pCO2 ABG pO2 ABG HCO3 ABG O2 Content ABG Base Excess ABG Methemoglobin [place] Test Hemoglobin Carboxyhemoglobin O2 Delivery Device Liter Flow Critical Value Sodium Potassium Chloride Carbon Dioxide Anion Gap BUN Creatinine 0.65 Estimated GFR Greater than 89 POC Glucose 107 Random Glucose Calcium Troponin I Microbiology 07/03/18 16:45 Blood - Peripheral Aerobic Blood Culture - Preliminary No growth in 3 days 07/03/18 16:45 Blood - Peripheral Anaerobic Blood Culture - Preliminary No growth in 3 days 07/03/18 14:50 Blood - Peripheral Aerobic Blood Culture - Preliminary No growth in 3 days 07/03/18 14:50 Blood - Peripheral Anaerobic Blood Culture - Preliminary No growth in 3 days 07/03/18 16:45 Abscess - Leg Gram Stain - Final 07/03/18 16:45 Abscess - Leg Wound Culture - Final Pseudomonas aeruginosa Staphylococcus aureus Assessment and Plan - Plan This patient is a 62-year-old female who is deaf. The patient has a diagnosis of dyslipidemia, diabetes mellitus type 2. The patient presented to the hospital with cellulitis of the left lower extremity. She was initially treated with outpatient antibiotics which she failed. She was admitted and subsequently started on antibiotics. 1. Sepsis secondary to left lower extremity cellulitis failed outpatient p.o. antibiotics. Patient presented with tachycardia, elevated WBC count. WBC count normalized. Physical examination shows left lower extremity cellulitis. Podiatry evaluated the patient and does not recommend any surgical intervention at this point. Patient still has a significant amount of erythema and swelling of the left lower ext. Continue IV antibiotics for today. ID following. Likely will be discharged in a day or two. Ultrasound of the left lower extremity is negative for DVT. Tylenol for pain control, will adjust her meds if needed. 2. Shortness of breath Patient has episodes of shortness of breath reported by nursing staff. Each time I evaluate the patient she appears fine to me. Bj was called last night because of a similar episode as detailed in my note from yesterday. I will obtain a chest xray. On labs her CO2 is elevated in the 30s from admission. She was on a diuretic at home. I ordered an xray. Will follow up the results. ALISIA is also a possibility given her BMI. Will continue to monitor. 3. Hypertension Patient on lisinopril. We will continue to monitor blood pressure and adjust her meds as needed. Blood pressure under control. 4. Diabetes mellitus type 2 Continue low-dose insulin sliding scale. Blood sugars currently acceptable. 5. Dyslipidemia Continue statin. Lovenox for DVT prophylaxis.
--- NOTE | 2018-07-07 11:16 | P.PNID ---
Subjective Remarks: Patient is a 62-year-old female, has been deaf since , brought into the hospital for further evaluation of cellulitis of the left lower extremity. Patient apparently has had problem with swelling in both lower extremities. She has some sores on her left leg which according to the patient has been present for several weeks. I asked her if she was putting any ointment or any salve, and she stated no. She also keeps the area open. Patient apparently was given a course of antibiotics by her primary care physician. She continues to have problem and so she was told to go to the hospital for further evaluation and treatment. Patient has not had any mention of any fever chills or sweats. She has a small amount of pain on her left leg. Since admission her white count was initially elevated and is down to normal. Ultrasound did not show any DVT. There is a wound culture that is currently pending, Gram stain is showing gram-positive 7 gram-negative rods. Patient is currently on Vanco and Zosyn. Infectious disease consultation has been requested to assist with evaluation and treatment. Notes reviewed Temps ok Had some SOB earlier Minimal pain in her L leg Podiatry notes reviewed Wound C/S MSSA and PSAE WBC normal Antibiotics: Cefepime Lines: PIV Past Medical History: Hyperlipidemia Obesity PVD (peripheral vascular disease) Rotator cuff dysfunction Type 2 diabetes mellitus History of History of exploratory laparotomy History of total hysterectomy with bilateral salpingo-oophorectomy (BSO) Allergies/Adverse Reactions: Allergies No Known Allergies Allergy (Verified 07/03/18 21:17) Objective Vital Signs 07/06/18 12:00 07/06/18 16:00 07/06/18 19:40 Temperature 98.0 F 97.8 F Pulse Rate 77 101 H Respiratory Rate 18 18 Blood Pressure 91/47 L 122/58 L Pulse Oximetry 94 L 94 L 56 L 07/06/18 19:45 07/06/18 19:50 07/06/18 20:00 Temperature 97.8 F Pulse Rate 101 H Respiratory Rate 20 Blood Pressure 136/65 Pulse Oximetry 94 L 94 L 93 L 07/06/18 20:20 07/06/18 20:52 07/07/18 00:00 Temperature 99.6 F Pulse Rate 106 H Respiratory Rate 20 Blood Pressure 150/69 H Pulse Oximetry 92 L 94 L 96 07/07/18 04:00 07/07/18 08:00 07/07/18 10:28 Temperature 98.8 F 99.2 F Pulse Rate 97 H 90 Respiratory Rate 20 16 Blood Pressure 157/71 H 115/58 L Pulse Oximetry 94 L 93 L 94 L Intake & Output 07/06/18 07/07/18 07/07/18 18:59 06:59 18:59 Intake Total 821.5 / 821.5 125 / 125 Output Total 250 / 250 Balance 821.5 / 821.5 -125 / -125 Intake: IV 461.5 / 461.5 100 / 100 Maxipime Inj 2,000 MG In NS Inj 100 / 100 100 / 100 100 ML @ 200 mls/hr IV.SIG Q12H TOÑO Rx#:[id number] Zosyn 4.5 GM Premix 4.5 gm In 100 / 100 100 ml @ 200 mls/hr IV.SIG Q6H TOÑO Rx#:[id number] Vancomycin Inj 1,150 MG In NS 261.5 / 261.5 Inj 250 ML @ 250 mls/hr IV.SIG Q12H TOÑO Rx#:[id number] Oral 360 / 360 25 / 25 Output: Urine 250 / 250 Other: # Voids 3 1 # Bowel Movements 0 07/03/18 16:45 Blood - Peripheral Aerobic Blood Culture - Preliminary No growth in 4 days 07/03/18 16:45 Blood - Peripheral Anaerobic Blood Culture - Preliminary No growth in 4 days 07/03/18 14:50 Blood - Peripheral Aerobic Blood Culture - Preliminary No growth in 4 days 07/03/18 14:50 Blood - Peripheral Anaerobic Blood Culture - Preliminary No growth in 4 days 07/03/18 16:45 Abscess - Leg Gram Stain - Final 07/03/18 16:45 Abscess - Leg Wound Culture - Final Pseudomonas aeruginosa Staphylococcus aureus Lab - Hematology Results 07/06/18 16:35 WBC 10.2 RBC 4.16 Hgb 11.8 Hct 36.0 MCV 86.4 MCH 28.4 MCHC 32.9 RDW 14.2 Plt Count 273 MPV 8.0 Neut % (Auto) 70.7 H Lymph % (Auto) 14.4 [place] % (Auto) 13.6 H Eos % (Auto) 0.9 Baso % (Auto) 0.4 Neut # (Auto) 7.2 Lymph # (Auto) 1.5 [place] # (Auto) 1.4 H Eos # (Auto) 0.1 Baso # (Auto) 0.0 WBC Differential . Differential Comment Auto diff final Lab - Chemistry Results 07/05/18 07/05/18 07/05/18 12:05 17:29 20:03 Sodium Potassium Chloride Carbon Dioxide Anion Gap BUN Creatinine Estimated GFR POC Glucose 113 H 107 241 H Random Glucose Calcium Troponin I 07/05/18 07/06/18 07/06/18 23:02 07:19 12:07 Sodium Potassium Chloride Carbon Dioxide Anion Gap BUN Creatinine Estimated GFR POC Glucose 149 H 113 H 120 H Random Glucose Calcium Troponin I 07/06/18 07/06/18 07/06/18 15:06 16:02 16:35 Sodium 138 Potassium 4.1 Chloride 96 L Carbon Dioxide 42.2 H Anion Gap 0 L BUN 11 Creatinine 0.83 Estimated GFR 70 L POC Glucose 113 H 148 H Random Glucose 155 H Calcium 8.2 L Troponin I Less than 0.02 L 07/06/18 07/06/18 07/07/18 17:14 20:10 06:28 Sodium Potassium Chloride Carbon Dioxide Anion Gap BUN Creatinine 0.65 Estimated GFR Greater than 89 POC Glucose 147 H 167 H Random Glucose Calcium Troponin I 07/07/18 08:17 Sodium Potassium Chloride Carbon Dioxide Anion Gap BUN Creatinine Estimated GFR POC Glucose 107 Random Glucose Calcium Troponin I Imaging: ITS Impressions Venous Doppler Study 07/03/18 16:52 CONCLUSION: 1. Negative for deep venous thrombosis, Limited exam from cellulitis and pain lower extremity. Physical Exam: GENERAL: awake and alert, not in respiratory distress. SKIN: Cool and dry. No generalized rash HEAD: Atraumatic. Normocephalic. No temporal wasting, or tenderness. EYES: [place] conjunctiva. No petechia or hemorrhage. No scleral icterus. No injection or drainage. EARS, NOSE AND THROAT: Mucous membranes pink and moist. No oral lesions noted. No exudate. No oral thrush. NECK: Trachea midline. Supple and not tender, no meningeal signs CARDIOVASCULAR: Regular rate and rhythm. No murmurs, rubs or gallops heard RESPIRATORY: Clear to auscultation. Breath sounds equal bilaterally. No rales , wheezing or rhonchi ABDOMEN: Obese, soft, has abdominal pannus, with indurated skin and edema noted , non-tender, nondistended. Bowel sounds present and normoactive. No guarding. No rebound. EXTREMITIES: No clubbing, cyanosis. Has tree bark ktexture of both feet. LLE larger compared to RLE. RLE - has some dry scabs. LLE - has a very large superficial wound, circumferential, drying up, looking better, and improving erythema. Edema in her LLE much improved also. No lymphangitis in L thigh. NEUROLOGICAL: Awake and alert. Cranial nerves grossly intact. Motor grossly within normal limits. PSYCHIATRIC: Normal affect, calm and cooperative. LINE: No evidence of infection Assessment and Plan - Plan Impression Stasis ulcers with cellulitis BLE edema Recommendation Continue wound care Switch to po Levaquin and complete Rx Try to control edema Monitor progress Follow-up with podiatry D/W Dr Moya ([facility])
--- NOTE | 2018-07-07 11:28 | XR ---
EXAM DATE: 07/07/2018 11:23 AM EST AGE/SEX: 63 years / Female INDICATIONS: Congestion, short of breath. CLINICAL DATA: This is the patient's initial encounter. Patient reports that signs and symptoms have been present for 2 days and indicates a pain score of Nonresponsive. MEDICAL/SURGICAL HISTORY: Hypertension. Carcinoma, cervical. None. COMPARISON: . FINDINGS: Lungs are under aerated with moderate bibasilar parenchymal changes. Small bilateral pleural effusion s are suspected. The heart is enlarged. Poor vascularity is congested. CONCLUSION: Probable mild failure. Small pleural effusions are suspected. Electronically signed by: Freedom Mosquera MD Board Certified Radiologist 07/07/2018 11:26 AM EST
--- NOTE | 2018-07-07 12:26 | ECG ---
Date Performed: 07/06/2018 Time Performed: 16:18:54 PTAGE: 62 years EKG: Sinus rhythm . Normal ECG NO PREVIOUS TRACING DOCTOR: Jamil Garibay Interpretating Date/Time 07/07/2018 12:24:08
[2018-07-07 13:03] LABS: Anion Gap 6 meq/L (5-15); Blood Urea Nitrogen 10 mg/dL (7-18); Calcium 8.3 mg/dL (8.5-10.1); Carbon Dioxide 37.6 meq/L (21.0-32.0); Chloride 94 meq/L (98-107); Glucose,Random 89 mg/dL (74-106); Potassium 4.1 meq/L (3.5-5.1); Sodium 138 meq/L (136-145)
[2018-07-07] MEDS: levoFLOXacin 750 MG Tablet PO SCH (13:46)
[2018-07-07] MEDS: Enoxaparin Inj 40 MG/0.4 ML Syringe SQ SCH (21:10)
--- NOTE | 2018-07-08 10:04 | P.PNIM ---
Subjective Interval history: Patient reports her breathing is about the same. She still has mild shortness of breath. bunghole borer service used to communicate with the patient. Physical Exam Vital signs: Last Vital Signs Temp 98.1 F 07/08/18 04:00 Pulse 85 07/08/18 04:00 Resp 16 07/08/18 04:00 BP 131/59 L 07/08/18 04:00 Pulse Ox 94 L 07/08/18 04:00 Intake & Output 07/06/18 07/07/18 07/08/18 07/09/18 06:59 06:59 06:59 06:59 Intake Total 946.5 / 946.5 840 / 840 Output Total 250 / 250 1650 / 1650 Balance 696.5 / 696.5 -810 / -810 Weight 122.7 kg 119.4 kg Narrative: General patient in no acute distress this morning. HEENT extraocular movements are intact, clear oropharyngeal mucosa, no JVD Cardiovascular S1-S2 audible, RRR. 2 out of 6 BHARGAV murmur best heard over the right upper sternal border. Respiratory clear to auscultation bilaterally Abdomen soft, nontender, nondistended, normal bowel sounds Extremities large wound with cellulitis of the left lateral hilotn. Dry scaly skin of bilateral feet. Neuro cranial nerves II through XII intact Results Labs CBC & Chem 7: 07/06/18 16:35 07/07/18 06:28 Labs: Microbiology 07/03/18 16:45 Blood - Peripheral Aerobic Blood Culture - Preliminary No growth in 4 days 07/03/18 16:45 Blood - Peripheral Anaerobic Blood Culture - Preliminary No growth in 4 days 07/03/18 14:50 Blood - Peripheral Aerobic Blood Culture - Preliminary No growth in 4 days 07/03/18 14:50 Blood - Peripheral Anaerobic Blood Culture - Preliminary No growth in 4 days Imaging Imaging: Impressions Chest X-Ray 07/07/18 00:00 CONCLUSION: Probable mild failure. Small pleural effusions are suspected. Assessment and Plan Plan 62-year-old female who is deaf. The patient has a diagnosis of dyslipidemia, diabetes mellitus type 2. The patient presented to the hospital with cellulitis of the left lower extremity. She was initially treated with outpatient antibiotics which she failed. She was admitted and subsequently started on IV antibiotics. 1. Sepsis secondary to left lower extremity cellulitis failed outpatient p.o. antibiotics. Patient presented with tachycardia, elevated WBC count. WBC count normalized. Physical examination shows left lower extremity cellulitis. Podiatry evaluated the patient and does not recommend any surgical intervention at this point. Ultrasound of the left lower extremity is negative for DVT. Per ID recommendation, continue on oral Levaquin to complete the course of treatment. Tylenol for pain control, will adjust her meds if needed. 2. Shortness of breath -Patient supposedly has been on diuretics at home. Unclear if she has history of CHF. Chest x-ray showed pulmonary vascular congestion. She diuresed well with IV Lasix. The 2D echocardiogram study was limited but reports preserved LVEF. She does have some evidence of aortic valve stenosis. -Given that she is responding to the IV Lasix. We will continue that for today with plan to transition her back to oral tomorrow. Will reevaluate her symptoms tomorrow. She can probably follow-up outpatient with cardiology regarding the aortic valve issue. ALISIA is also a possibility given her BMI. Will continue to monitor. Will obtain oxygen walk test. 3. Hypertension Patient on lisinopril. We will continue to monitor blood pressure and adjust her meds as needed. Blood pressure under control. 4. Diabetes mellitus type 2 Continue low-dose insulin sliding scale. Blood sugars currently acceptable. 5. Dyslipidemia Continue statin. Lovenox for DVT prophylaxis. Progress Note: Quality VTE Deep Vein Thrombosis/Pulmonary Embolism Present on Admission: No
[2018-07-08] MEDS: levoFLOXacin 750 MG Tablet PO SCH (12:33)
--- NOTE | 2018-07-08 13:04 | P.PNID ---
Subjective Remarks: Patient is a 62-year-old female, has been deaf since , brought into the hospital for further evaluation of cellulitis of the left lower extremity. Patient apparently has had problem with swelling in both lower extremities. She has some sores on her left leg which according to the patient has been present for several weeks. I asked her if she was putting any ointment or any salve, and she stated no. She also keeps the area open. Patient apparently was given a course of antibiotics by her primary care physician. She continues to have problem and so she was told to go to the hospital for further evaluation and treatment. Patient has not had any mention of any fever chills or sweats. She has a small amount of pain on her left leg. Since admission her white count was initially elevated and is down to normal. Ultrasound did not show any DVT. There is a wound culture that is currently pending, Gram stain is showing gram-positive 7 gram-negative rods. Patient is currently on Vanco and Zosyn. Infectious disease consultation has been requested to assist with evaluation and treatment. Notes reviewed Temps ok mild SOB CXR mild CHF Minimal pain in her L leg Podiatry notes reviewed Wound C/S MSSA and PSAE WBC normal Antibiotics: Cefepime Lines: PIV Past Medical History: Hyperlipidemia Obesity PVD (peripheral vascular disease) Rotator cuff dysfunction Type 2 diabetes mellitus History of History of exploratory laparotomy History of total hysterectomy with bilateral salpingo-oophorectomy (BSO) Allergies/Adverse Reactions: Allergies No Known Allergies Allergy (Verified 07/03/18 21:17) Objective Vital Signs 07/07/18 16:00 07/07/18 17:35 07/07/18 20:00 Temperature 98.2 F 98.6 F Pulse Rate 124 H 82 Respiratory Rate 17 18 Blood Pressure 151/69 H 142/63 H Pulse Oximetry 93 L 93 L 94 L 07/08/18 00:00 07/08/18 04:00 07/08/18 08:00 Temperature 98.1 F 98.1 F 98.9 F Pulse Rate 86 85 80 Respiratory Rate 19 16 16 Blood Pressure 138/70 131/59 L 168/71 H Pulse Oximetry 95 94 L 92 L Intake & Output 07/07/18 07/08/18 07/08/18 18:59 06:59 18:59 Intake Total 600 / 600 240 / 240 Output Total 600 / 600 1050 / 1050 Balance 0 / 0 -810 / -810 Weight 119.4 kg Intake: Oral 600 / 600 240 / 240 Output: Urine 600 / 600 1050 / 1050 Other: # Incontinent Voids 1 # Bowel Movements 0 07/03/18 16:45 Blood - Peripheral Aerobic Blood Culture - Final No growth in 5 days 07/03/18 16:45 Blood - Peripheral Anaerobic Blood Culture - Final No growth in 5 days 07/03/18 14:50 Blood - Peripheral Aerobic Blood Culture - Final No growth in 5 days 07/03/18 14:50 Blood - Peripheral Anaerobic Blood Culture - Final No growth in 5 days 07/03/18 16:45 Abscess - Leg Gram Stain - Final 07/03/18 16:45 Abscess - Leg Wound Culture - Final Pseudomonas aeruginosa Staphylococcus aureus Lab - Hematology Results 07/06/18 16:35 WBC 10.2 RBC 4.16 Hgb 11.8 Hct 36.0 MCV 86.4 MCH 28.4 MCHC 32.9 RDW 14.2 Plt Count 273 MPV 8.0 Neut % (Auto) 70.7 H Lymph % (Auto) 14.4 [place] % (Auto) 13.6 H Eos % (Auto) 0.9 Baso % (Auto) 0.4 Neut # (Auto) 7.2 Lymph # (Auto) 1.5 [place] # (Auto) 1.4 H Eos # (Auto) 0.1 Baso # (Auto) 0.0 WBC Differential . Differential Comment Auto diff final Lab - Chemistry Results 07/06/18 07/06/18 07/06/18 15:06 16:02 16:35 Sodium 138 Potassium 4.1 Chloride 96 L Carbon Dioxide 42.2 H Anion Gap 0 L BUN 11 Creatinine 0.83 Estimated GFR 70 L POC Glucose 113 H 148 H Random Glucose 155 H Calcium 8.2 L Troponin I Less than 0.02 L B-Natriuretic Peptide 07/06/18 07/06/18 07/07/18 17:14 20:10 06:28 Sodium 138 Potassium 4.1 Chloride 94 L Carbon Dioxide 37.6 H Anion Gap 6 BUN 10 Creatinine 0.65 Estimated GFR Greater than 89 POC Glucose 147 H 167 H Random Glucose 89 Calcium 8.3 L Troponin I B-Natriuretic Peptide 07/07/18 07/07/18 07/07/18 06:28 08:17 12:25 Sodium Cancelled Potassium Cancelled Chloride Cancelled Carbon Dioxide Cancelled Anion Gap Cancelled BUN Cancelled Creatinine Cancelled Estimated GFR Cancelled POC Glucose 107 114 H Random Glucose Cancelled Calcium Cancelled Troponin I B-Natriuretic Peptide 07/07/18 07/07/18 07/07/18 17:14 19:59 21:15 Sodium Potassium Chloride Carbon Dioxide Anion Gap BUN Creatinine Estimated GFR POC Glucose 133 H 112 H Random Glucose Calcium Troponin I B-Natriuretic Peptide 110 H 07/08/18 07/08/18 07:54 12:10 Sodium Potassium Chloride Carbon Dioxide Anion Gap BUN Creatinine Estimated GFR POC Glucose 101 108 Random Glucose Calcium Troponin I B-Natriuretic Peptide Imaging: ITS Impressions Venous Doppler Study 07/03/18 16:52 CONCLUSION: 1. Negative for deep venous thrombosis, Limited exam from cellulitis and pain lower extremity. Chest X-Ray 07/07/18 00:00 CONCLUSION: Probable mild failure. Small pleural effusions are suspected. Physical Exam: GENERAL: awake and alert, not in respiratory distress. SKIN: Cool and dry. No generalized rash HEAD: Atraumatic. Normocephalic. No temporal wasting, or tenderness. EYES: [place] conjunctiva. No petechia or hemorrhage. No scleral icterus. No injection or drainage. EARS, NOSE AND THROAT: Mucous membranes pink and moist. No oral lesions noted. No exudate. No oral thrush. NECK: Trachea midline. Supple and not tender, no meningeal signs CARDIOVASCULAR: Regular rate and rhythm. No murmurs, rubs or gallops heard RESPIRATORY: Clear to auscultation. Breath sounds equal bilaterally. No rales , wheezing or rhonchi ABDOMEN: Obese, soft, has abdominal pannus, with indurated skin and edema noted , non-tender, nondistended. Bowel sounds present and normoactive. No guarding. No rebound. EXTREMITIES: No clubbing, cyanosis. Has tree bark ktexture of both feet. LLE larger compared to RLE. RLE - has some dry scabs. LLE - has a very large superficial wound, circumferential, drying up, looking better, and improving erythema. Edema in her LLE much improved also. No lymphangitis in L thigh. NEUROLOGICAL: Awake and alert. Cranial nerves grossly intact. Motor grossly within normal limits. PSYCHIATRIC: Normal affect, calm and cooperative. LINE: No evidence of infection Assessment and Plan - Plan Impression Stasis ulcers with cellulitis BLE edema Recommendation Continue wound care Continue po Levaquin and complete Rx Control edema Follow-up with podiatry Clinically stable from ID standpoint I will see prn Please reconsult if with any ID issue or question
--- NOTE | 2018-07-08 13:26 | ECHRPT ---
Indication: CVA/TIA CONCLUSIONS Normal left ventricular size. Wall thickness is measured at the upper limits of normal. The left ventricular systolic function is normal with an estimated ejection fraction of 55%. No def inite wall motion abnormalities though the technical limitations of the study preclude optimal wall motion assessment. Trace mitral valve regurgitation. Moderate mitral annular calcification is present. There is trace tricuspid valve regurgitation. The estimated pulmonary arterial pressure is 36 mmHg. The aortic valve is not well visualized. Diffuse moderate thickening and calcification of the aorti c valve. Moderate aortic valve stenosis with a mean transvalvular gradient of 31 mm Hg. BP: / HR: Rhythm: Sinus MEASUREMENTS (Male / Female) Normal Values Technical Quality:Technically difficult study 2D ECHO LV Diastolic Diameter PLAX 5.0 cm 4.2 - 5.9 / 3.9 - 5.3 cm LV Systolic Diameter PLAX 4.1 cm IVS Diastolic Thickness 1.2 cm 0.6 - 1.0 / 0.6 - 0.9 cm LVPW Diastolic Thickness 1.2 cm 0.6 - 1.0 / 0.6 - 0.9 cm LV Relative Wall Thickness 0.5 LVOT Diameter 1.7 cm Aortic Root Diameter 2.6 cm LA Systolic Diameter LX 4.2 cm 3.0 - 4.0 / 2.7 - 3.8 cm DOPPLER AV Peak Velocity 363.3 cm/s AV Peak Gradient 52.8 mmHg AV Mean Gradient 30.5 mmHg AV Velocity Time Integral 72.9 cm LVOT Peak Velocity 101.2 cm/s LVOT Peak Gradient 4.1 mmHg LVOT Velocity Time Integral 20.2 cm AV Area Cont Eq vti 0.6 cm AV Area Cont Eq pk 0.6 cm MV Peak Velocity 149.0 cm/s MV Peak Gradient 8.9 mmHg MV Mean Velocity 98.0 cm/s MV Mean Gradient 4.0 mmHg MR Peak Velocity 221.0 cm/s MR Peak Gradient 19.5 mmHg Mitral E Point Velocity 107.0 cm/s Mitral A Point Velocity 143.0 cm/s Mitral E to A Ratio 0.7 LV E' Lateral Velocity 6.9 cm/s Mitral E to LV E' Lateral Ratio 15.5 LV E' Septal Velocity 7.8 cm/s Mitral E to LV E' Septal Ratio 13.7 TR Peak Velocity 257.0 cm/s TR Peak Gradient 26.4 mmHg Right Atrial Pressure 10.0 mmHg Pulmonary Artery Systolic Pressu 36.4 mmHg Right Ventricular Systolic Press 36.4 mmHg PV Peak Velocity 171.0 cm/s PV Peak Gradient 11.7 mmHg FINDINGS LEFT VENTRICLE Normal left ventricular size. Wall thickness is measured at the upper limits of normal. The left ventricular systolic function is normal with an estimated ejection fraction of 55%. No def inite wall motion abnormalities though the technical limitations of the study preclude optimal wall motion assessment. RIGHT VENTRICLE Normal right ventricular size and systolic function. LEFT ATRIUM The left atrial size is normal. RIGHT ATRIUM The right atrial size is normal. ATRIAL SEPTUM Normal atrial septal thickness without atrial level shunting by limited color doppler interrogation. AORTA The aortic root and proximal ascending aorta are normal in size on limited imaging. MITRAL VALVE Trace mitral valve regurgitation. Moderate mitral annular calcification is present. AORTIC VALVE The aortic valve is not well visualized. Diffuse moderate thickening and calcification of the aortic valve. Moderate aortic valve stenosis w ith a mean transvalvular gradient of 31 mm Hg.. TRICUSPID VALVE There is trace tricuspid valve regurgitation. The estimated pulmonary arterial pressure is 36 mmHg. PULMONARY VALVE No pulmonary valve regurgitation or stenosis. VESSELS The inferior vena cava was not well visualized. PERICARDIUM No pericardial effusion. Basilio Roy MD (Electronically Signed) Final Date:08 July 2018 13:24
[2018-07-08] MEDS: Enoxaparin Inj 40 MG/0.4 ML Syringe SQ SCH (22:09)
[2018-07-09 07:08] LABS: Hematocrit 37.5 % (35.0-46.0); Hemoglobin 12.4 gm/dL (11.6-15.3); Mean Corpuscular Hemoglobin 28.3 pg (27.0-34.0); Mean Corpuscular Volume 85.5 fL (80.0-100.0); Mean Platelet Volume 8.4 fL (7.0-11.0); Platelet Count 257 th/mm3 (150-450); Red Blood Count 4.38 mil/mm3 (4.00-5.30); Red Cell Distribution Width 14.3 % (11.6-17.2); White Blood Count 7.9 th/mm3 (4.0-11.0)
[2018-07-09 07:43] LABS: Anion Gap 5 meq/L (5-15); Blood Urea Nitrogen 14 mg/dL (7-18); Calcium 8.6 mg/dL (8.5-10.1); Carbon Dioxide 41.2 meq/L (21.0-32.0); Chloride 92 meq/L (98-107); Glomerular Filtration Rate Greater Than 89 mL/min (>89); Glucose,Random 84 mg/dL (74-106); Potassium 3.5 meq/L (3.5-5.1); Sodium 138 meq/L (136-145)
--- NOTE | 2018-07-09 11:24 | P.DS ---
DS: Providers Date of admission: 07/03/18 19:30 Primary care physician: UNKNOWN Consults: 07/04/18 15:11 Consult to Infectious Diseases Routine Consulting Provider: Gracy Montiel Reason for Consultation: Left lower ext cellulitis Notified:: Service Spoke with:: ksenia Date Notified:: 07/04/18 Time Notified:: 15:15 Ordering Provider: REYNALDO 07/04/18 15:12 Consult to Podiatry Routine Consulting Provider: Valentine Martines Reason for Consultation: Left lower ext cellulitis Notified:: Office Spoke with:: ANGELITO Date Notified:: 07/04/18 Time Notified:: 15:16 Ordering Provider: TEEN 07/08/18 15:35 HUB Only Consult Order Routine Consulting Provider: Felix Mondragon,Zulema 07/09/18 10:17 HUB Only Consult Order Routine Consulting Provider: Shashank Gannon,Zulema Brief History from admission: HPI as documented by the admitting physician Ms. Leiva is a 62 y/o female who has been deaf since and has a history of hyperlipidemia, obesity, peripheral vascular disease, hypertension, and diabetes mellitus who presented to the emergency room 07/03/2018 because 1 of the doctors who cares for her sent her to the hospital for evaluation of cellulitis in the left lower extremity with failed outpatient therapy. Patient is admitted to the hospitalist service for medical management. Patient is seen in her hospital room on 4 N. She was interviewed using [employer] sign language interpretation video system. The patient has difficulty staying focused on spotter and just focused on the subject of the interview at times and becomes hyper focused on left lower extremity pain and her need for sleep. She reports severe left lower extremity pain that is intermittent and pulsatile in quality and keeps her awake at night. She reports not having slept well in several days due to pain. DS: Diagnosis Discharge Diagnosis (1) Stasis dermatitis of both legs: Status: Acute DS: Summary 07/09/18: [employer] chief design drafter service used. Patient reports she is feeling fine today. I discussed discharge planning with her. 63-year-old female admitted and treated for the followin. Sepsis secondary to left lower extremity cellulitis failed outpatient p.o. antibiotics. Patient presented with tachycardia, elevated WBC count. WBC count normalized. Physical examination shows left lower extremity cellulitis. Podiatry evaluated the patient and does not recommend any surgical intervention at this point. Ultrasound of the left lower extremity is negative for DVT. Per ID recommendation, continue on oral Levaquin to complete the course of treatment. Patient is discharged on Levaquin for an additional 10 days. Tylenol for pain control as needed. 2. Shortness of breath and hypoxemia -Patient supposedly has been on diuretics at home. Unclear if she has history of CHF. Chest x-ray showed pulmonary vascular congestion. She diuresed well with IV Lasix. The 2D echocardiogram study was limited but reports preserved LVEF. She does have some evidence of aortic valve stenosis. -Given that she is responded to Lasix. This was discontinued in the hospital and will be continued at home to help with lower extremity edema. She was advised to follow-up outpatient with cardiology regarding the aortic valve issue. ALISIA is also a possibility given her BMI. -Patient is discharged with home oxygen and is advised to follow-up outpatient with PCP. She would benefit from sleep study with pulmonology 3. Hypertension Continue Lasix 40 mg p.o. daily. Low-dose lisinopril. Follow-up outpatient. 4. Diabetes mellitus type 2 Diet controlled. Has not required insulin. 5. Dyslipidemia Continue statin. Time Spent with Patient Total time spent providing and/or coordinating discharge services: Quality: VTE Deep Vein Thrombosis/Pulmonary Embolism Present on Admission: No Exam Narrative Exam Narrative: General: Patient in no acute distress this morning. HEENT: extraocular movements are intact, clear oropharyngeal mucosa, no JVD Cardiovascular S1-S2 audible, RRR. 2 out of 6 BHARGAV murmur best heard over the right upper sternal border. Respiratory clear to auscultation bilaterally Abdomen soft, nontender, nondistended, normal bowel sounds Left lateral [place] wound is improving. Cellulitis much improved. Dry scaly skin of bilateral feet. Results Labs on day of discharge: Labs from last 24 hours 07/09/18 07/09/18 07/09/18 07:55 03:45 03:45 WBC 7.9 RBC 4.38 Hgb 12.4 Hct 37.5 MCV 85.5 MCH 28.3 MCHC 33.0 RDW 14.3 Plt Count 257 MPV 8.4 Sodium 138 Potassium 3.5 Chloride 92 L Carbon Dioxide 41.2 H Anion Gap 5 BUN 14 Creatinine 0.55 Estimated GFR Greater than 89 POC Glucose 110 Random Glucose 84 Calcium 8.6 07/08/18 07/08/18 07/08/18 20:23 17:33 12:10 WBC RBC Hgb Hct MCV MCH MCHC RDW Plt Count MPV Sodium Potassium Chloride Carbon Dioxide Anion Gap BUN Creatinine Estimated GFR POC Glucose 109 95 108 Random Glucose Calcium Impressions ITS Impressions Venous Doppler Study 07/03/18 16:52 CONCLUSION: 1. Negative for deep venous thrombosis, Limited exam from cellulitis and pain lower extremity. Chest X-Ray 07/07/18 00:00 CONCLUSION: Probable mild failure. Small pleural effusions are suspected. Discharge Plan Discharge Disposition Patient Disposition: W/Home Health Service Discharge Condition Condition: Stable Discharge Order Discharge Orders: Discharge Order (Routine); Ordered 07/09/18 Ordered By: Jose Raul Zuleta Physicians Team ED Provider: Reid Jackson ED Midlevel Provider: [place] Primary Care Provider: HETAL, Attending Provider: Jose Raul Zuleta Other Providers: Valentine Martines ; Gracy Montiel ; [facility] ; [facility] Rxs /Orders / Referrals /Forms Prescriptions: New levofloxacin 750 mg Tablet 750 mg PO Q24H Qty: 10 RF: 0 lisinopril 5 mg tablet 5 mg PO DAILY Qty: 30 RF: 0 Continue Advil RF: 0 pravastatin 20 mg Tablet 20 mg PO DAILY RF: 0 Changed Lasix 40 mg PO DAILY Qty: 30 RF: 0 Discontinued amoxicillin RF: 0 naproxen 500 mg PO TID RF: 0 Ambulatory Orders / Order Sets / DME: Oxygen Tank (2 liter) (Routine) Location: Determined by Patient Ordered By: Jose Raul Zuleta Referrals: UNKNOWN, [Primary Care Provider] - See Instructions Status ED Status: Left Department
[2018-07-09] MEDS: levoFLOXacin 750 MG Tablet PO SCH (13:57)
[2018-07-09 14:24] VITALS: O2SAT 90
[2018-07-09 18:13] VITALS: BP 175/77; RESP 16; TEMP 99.3
[2018-07-09 18:36] VITALS: PULSE 97
== END 2018-07-09 18:00 | disposition home health service (06) ==
LOC: NEPC 16:21 → NEDA 19:30 → N04 21:23
PROVIDERS: ADMIT Family Medicine; ATTEND Family Medicine
DX: I73.9 Peripheral vascular disease, unspecified; E66.2 Morbid (severe) obesity with alveolar hypoventilation; Z68.42 Body mass index [BMI] 45.0-49.9, adult; I42.9 Cardiomyopathy, unspecified; A41.9 Sepsis, unspecified organism; I10 Essential (primary) hypertension; E78.5 Hyperlipidemia, unspecified; E11.51 Type 2 diabetes mellitus with diabetic peripheral angiopathy without gangrene; R09.02 Hypoxemia; I87.2 Venous insufficiency (chronic) (peripheral); H90.3 Sensorineural hearing loss, bilateral; I35.9 Nonrheumatic aortic valve disorder, unspecified; L03.116 Cellulitis of left lower limb; E11.40 Type 2 diabetes mellitus with diabetic neuropathy, unspecified